=== PATIENT | female | born 1955 | race Caucasian/White ===

== ENCOUNTER → 2018-10-06 | Outpatient (CLI) | payer BC ==
[2018-10-06 10:41] LABS: Anisocytosis Slight; HCT 39.4 % (34.0-46.0); HGB 12.1 gm/dL (11.4-16.0); Hypochromasia Slight; MCH 26.2 pg (25.0-35.0); MCHC 30.8 g/dL (31.0-37.0); MCV 84.8 fL (80.0-100.0); Mean Platelet Volume 7.1; Platelet Count 325 k/uL (150-450); RBC 4.64 m/uL (3.80-5.40); RDW 16.3 % (11.5-15.5); WBC 6.5 k/uL (3.8-10.6)
== END ==
LOC: LABPAT 09:30
PROVIDERS: ATTEND Anesthesiology
DX: Z01.812 Encounter for preprocedural laboratory examination (principal); K44.9 Diaphragmatic hernia without obstruction or gangrene; Z79.899 Other long term (current) drug therapy
CPT/HCPCS: 36415; 84132; 85027

== ENCOUNTER 2018-10-09 15:55 | Inpatient (IN) | payer BC ==
[2018-10-10] MEDS ORDERED: LEVOFLOXACIN 500MG-D5W PMX 500 MG in DEXTROSE/WATER 1 100ML.BAG IVPB ONE (05:00)
[2018-10-10] MEDS ORDERED: CLINDAMYCIN 900 MG in DEXTROSE 5% IN WATER 50 ML IVPB ONE ×2 (05:00)
[2018-10-10] MEDS ORDERED: HEPARIN SODIUM,PORCINE 5,000 UNIT/ML 1 ML VIAL SQ ONE (05:00)
[2018-10-10] MEDS ORDERED: SCOPOLAMINE 1.5MG/72HR PATCH TRANSDERM ONE (05:57)
[2018-10-10] MEDS ORDERED: MIDAZOLAM (PF) 2 MG/2 ML VIAL IV PRN (05:57)
[2018-10-10] MEDS ORDERED: DEXAMETHASONE SOD PHOSPHATE 10 MG/ML 1 ML VIAL IV ONE (05:57)
[2018-10-10] MEDS ORDERED: ONDANSETRON 4 MG/2 ML VIAL IVP ONE (05:57)
[2018-10-10] MEDS ORDERED: LIDOCAINE 1% 20 ML VIAL (10MG/ML) FOR IV START INTRADERMA PRN (05:57)
[2018-10-10] MEDS ORDERED: PANTOPRAZOLE 40 MG/10 ML VIAL IV STA (06:10)
[2018-10-10] MEDS ORDERED: ENOXAPARIN 40 MG/0.4 ML SYRINGE SQ STA (06:10)
[2018-10-10] MEDS ORDERED: CHLORHEXIDINE GLUCONATE 15 ML CUP MUCOUS MEM ONE (06:10)
--- NOTE | 2018-10-10 06:19 | P.GSHP ---
History of Present Illness H&P Date: 10/10/18 CHIEF COMPLAINT: Paraesophageal hiatal hernia with gastroesophageal reflux disease. HISTORY OF PRESENT ILLNESS: The patient is a 63-year-old female who presents with paraesophageal hiatal hernia. She has completed upper endoscopy workup. She has history of previous vertical banded gastroplasty for morbid obesity over 30+ years ago now with complications of gastroparesis. She present with BMI over 50. Now she presents for surgical intervention. PAST MEDICAL HISTORY: Please see list. PAST SURGICAL HISTORY: Please see list. MEDICATIONS: Please see list. ALLERGIES: Please see list. SOCIAL HISTORY: No illicit drug use FAMILY HISTORY: No reports of Crohn disease or ulcerative colitis. REVIEW OF ORGAN SYSTEMS: CONSTITUTIONAL: No reports of fevers or chills. GI: Denies any blood in stools. PHYSICAL EXAM: VITAL SIGNS: Stable GENERAL: Well-developed pleasant and in no acute distress. HEENT: No scleral icterus. Extraocular movements grossly intact. Moist buccal mucosa. NECK: Supple without lymphadenopathy. CHEST: Unlabored respirations. Equal bilateral excursions. CARDIOVASCULAR: Regular rate and rhythm. Distal 2+ pulses. ABDOMEN: Soft, nondistended. No peritoneal signs. MUSCULOSKELETAL: No clubbing, cyanosis, or edema. SKIN: Well-perfused. Good skin turgor. CT of the chest: Shows large paraesophageal hiatal hernia. ASSESSMENT: 1. Diaphragmatic paraesophageal hiatal hernia with severe gastroesophageal reflux disease. PLAN: 1. Recommend proceeding with a robotic paraesophageal hiatal hernia with possible mesh. 2. Benefits and risks of surgical intervention was discussed including possibility of open technique. 3. Inpatient hospitalization recommended of 2 nights 4. DVT prophylaxis. 5. Antibiotic prophylaxis. 6. She has also completed a very low caloric high-protein diet to address underlying hepatomegaly. Past Medical History Past Medical History: COPD, GERD/Reflux, Thyroid Disorder Additional Past Medical History / Comment(s): hiatal hernia,hx hypoglycemia, rapid heart rate History of Any Multi-Drug Resistant Organisms: None Reported Past Surgical History: Appendectomy, Bariatric Surgery, Section, Cholecystectomy, Joint Replacement, Tonsillectomy Additional Past Surgical History / Comment(s): rt shoulder replacement,tali knee replaced x 2,gastric stapling 30 yrs ago-later reversed,rt carpel tunnel x 2 Past Anesthesia/Blood Transfusion Reactions: No Reported Reaction Additional Past Anesthesia/Blood Transfusion Reaction / Comment(s): no hx blood transfusion Smoking Status: Former smoker - Past Family History Mother Family Medical History: No Reported History Father Family Medical History: Cancer Medications and Allergies Home Medications Medication Instructions Recorded Confirmed Type Cholecalciferol [Vitamin D3] 5,000 unit PO DAILY 10/03/18 10/03/18 History Cyclobenzaprine HCl 10 mg PO HS 10/03/18 10/03/18 History DULoxetine HCL [Cymbalta] 30 mg PO BID 10/03/18 10/03/18 History Furosemide [Lasix] 40 mg PO BID 10/03/18 10/03/18 History Gabapentin [Neurontin] 600 mg PO TID 10/03/18 10/03/18 History Grape Seed Extract 50 mg PO DAILY 10/03/18 History Lansoprazole 30 mg PO BID 10/03/18 10/03/18 History Levothyroxine Sodium 100 mcg PO QAM 10/03/18 10/03/18 History Losartan [Cozaar] 50 mg PO QAM 10/03/18 10/03/18 History Magnesium 250 mg PO DAILY 10/03/18 10/03/18 History Metoprolol Tartrate [Lopressor] 25 mg PO BID 10/03/18 10/03/18 History Montelukast Sodium [Singulair] 10 mg PO HS 10/03/18 10/03/18 History Multivitamins, Thera [Multivitamin 1 tab PO DAILY 10/03/18 10/03/18 History (formulary)] Potassium Chloride 10 meq PO DAILY 10/03/18 10/03/18 History Spironolactone [Aldactone] 25 mg PO DAILY 10/03/18 10/03/18 History Turmeric Root Extract [Turmeric] 500 mg PO DAILY 10/03/18 10/03/18 History Allergies Allergy/AdvReac Type Severity Reaction Status Date / Time cephalexin [From Keflex] Allergy rash Verified 10/03/18 13:34 around mouth doxycycline Allergy Itching Verified 10/03/18 13:34
[2018-10-10] MEDS: LACTATED RINGERS 1,000 ML IV SCH (09:34)
[2018-10-10 09:55] LABS: ALT 42 U/L (9-52); AST 38 U/L (14-36); Albumin 4.2 g/dL (3.5-5.0); Alkaline Phosphatase 81 U/L (38-126); Anion Gap 7 mmol/L; Blood Urea Nitrogen 10 mg/dL (7-17); Calcium 9.2 mg/dL (8.4-10.2); Carbon Dioxide 30 mmol/L (22-30); Chloride 107 mmol/L (98-107); Glucose 108 mg/dL (74-99); Potassium 3.9 mmol/L (3.5-5.1); Sodium 144 mmol/L (137-145); Total Bilirubin 0.7 mg/dL (0.2-1.3); Total Protein 6.9 g/dL (6.3-8.2)
[2018-10-10] MEDS ORDERED: PHENYLEPHRINE-0.9% NACL SYG 1 MG/10 ML SYRINGE ONE (10:59)
[2018-10-10] MEDS ORDERED: PROPOFOL 10 MG/ML 20 ML VIAL IV ONE (10:59)
[2018-10-10] MEDS ORDERED: LIDOCAINE 1% INJ 10MG/ML (20 ML MDV) ONE (10:59)
[2018-10-10] MEDS ORDERED: fentaNYL (PF) 50 MCG/ML 2 ML AMP ONE (10:59)
[2018-10-10] MEDS ORDERED: KETOROLAC 30 MG/ML 1 ML VIAL ONE (10:59)
[2018-10-10] MEDS ORDERED: NALOXONE 0.4 MG/ML 1 ML VIAL ONE (10:59)
[2018-10-10] MEDS ORDERED: SUCCINYLCHOLINE CHLORIDE 100 MG/5 ML SYR IV ONE (10:59)
[2018-10-10] MEDS ORDERED: MIDAZOLAM 2 MG/2 ML VIAL ONE (10:59)
[2018-10-10] MEDS ORDERED: NEOSTIGMINE 1 MG/ML 10 ML VIAL ONE (10:59)
[2018-10-10] MEDS ORDERED: GLYCOPYRROLATE 0.2 MG/ML 2 ML VIAL ONE (10:59)
[2018-10-10] MEDS ORDERED: VECURONIUM 10 MG VIAL IV ONE (10:59)
[2018-10-10] MEDS ORDERED: BUPIVACAIN-EPI 0.5%-1:200,000 30 ML VIAL SQ ONE ×2 (11:29→11:42)
[2018-10-10] MEDS ORDERED: LACTATED RINGERS 1,000 ML IV ONE (12:12)
[2018-10-10] MEDS ORDERED: diphenhydrAMINE 50 MG/ML 1 ML VIAL IVP PRN (12:53)
[2018-10-10] MEDS ORDERED: NALOXONE 0.4 MG/ML 1 ML VIAL IV PRN (12:53)
--- NOTE | 2018-10-10 13:00 | P.OP ---
Date of Procedure: 10/10/18 Preoperative Diagnosis: Esophageal reflux disease, gastroparesis, complications of vertical banded gastroplasty, super morbid obesity BMI 52.7, diaphragmatic hiatal hernia Postoperative Diagnosis: Same, severe peritoneal adhesions with small bowel obstruction, incarcerated incisional hernia midline Procedure(s) Performed: Robotic extensive lysis of adhesions over 1 hour Anesthesia: GETA, local Surgeon: Ina Novoa Estimated Blood Loss (ml): 5 Pathology: none sent Condition: stable Disposition: floor Operative Findings: 1. Diffuse intra-abdominal adhesions prohibiting view of epigastrium including stomach requiring extensive lysis of adhesions over 1 hour 2. Multiple interloop adhesions including small bowel adhesion to the abdominal wall with features consistent with bowel obstruction, hiatal hernia repair portion of the case aborted
[2018-10-10] MEDS: HYDROmorphone 0.5 MG/0.5 ML SYRINGE IVP PRN ×2 (13:49→13:55)
[2018-10-10] MEDS ORDERED: ACETAMINOPHEN IV (For NPO) 1,000 MG in EMPTY BAG 1 BAG IVPB ONE (15:00)
[2018-10-10] MEDS: 0.9% NACL WITH KCL 20 MEQ/L 1,000 ML IV SCH ×2 (16:00→21:07)
[2018-10-10 16:07] VITALS: BMI 52.7
[2018-10-10] MEDS: ALBUTEROL NEBULIZED 2.5 MG/3 ML INHALATION SCH ×2 (16:12→20:19)
[2018-10-10] MEDS: SIMETHICONE 40 MG/0.6 ML DROPS 2,000 MG/30 ML BOTTLE PO SCH ×2 (16:35→23:42)
[2018-10-10] MEDS: PANTOPRAZOLE 40 MG TABLET PO SCH (16:35)
[2018-10-10] MEDS: GABAPENTIN 300 MG CAP PO SCH ×2 (16:35→21:04)
[2018-10-10] MEDS: CYCLOBENZAPRINE 10 MG TAB PO SCH (21:04)
[2018-10-10] MEDS: METOPROLOL TARTRATE 25 MG TAB PO SCH (21:04)
[2018-10-10] MEDS: MONTELUKAST 10 MG TAB PO SCH (21:04)
[2018-10-10] MEDS: DULoxetine HCL 30 MG CAPSULE.DR PO SCH (21:07)
--- NOTE | 2018-10-10 22:19 | P.OP ---
Date of Procedure: 10/10/18 Description of Procedure: SURGEON: ELI RUELAS MD PREOPERATIVE DIAGNOSES: 1. Gastroesophageal reflux disease 2. Gastroparesis 3. Complications of vertical banded gastroplasty 4. Super morbid obesity BMI 52.7 5. Diaphragmatic hiatal hernia 6. Congestive heart failure with hypertensive cardiomyopathy 7. Moderate chronic obstructive pulmonary disease 8. Depressive disorder 9. Hypothyroidism 10. Neuropathy 11. Osteoarthritis bilateral knees, primary 12. History of multiple abdominal procedures POSTOPERATIVE DIAGNOSES: 1. Gastroesophageal reflux disease 2. Gastroparesis 3. Complications of vertical banded gastroplasty 4. Super morbid obesity BMI 52.7 5. Diaphragmatic hiatal hernia 6. Congestive heart failure with hypertensive cardiomyopathy 7. Moderate chronic obstructive pulmonary disease 8. Depressive disorder 9. Hypothyroidism 10. Neuropathy 11. Osteoarthritis bilateral knees, primary 12. History of multiple abdominal procedures 13. Severe peritoneal adhesions with small bowel obstruction 14. Incarcerated incisional hernia midline involving omentum OPERATION: 1. Robotic-assisted da Matt Xi laparoscopic extensive lysis of adhesions over 1 hour COMPLICATIONS: None. Anesthesia: GETA, local Estimated Blood Loss (ml): 5 Pathology: none sent Condition: stable Disposition: floor Operative Findings: 1. Diffuse intra-abdominal adhesions prohibiting view of epigastrium including stomach requiring extensive lysis of adhesions over 1 hour 2. Multiple interloop adhesions including small bowel adhesion to the abdominal wall with features consistent with small bowel obstruction 3. Hiatal hernia repair portion of the case aborted INDICATIONS: The patient is a 63-year-old female who presents with gastroesophageal reflux and abnormal diagnostic studies demonstrating hiatal hernia and gastric distortion from vertical banded gastroplasty. Surgical intervention of hiatal hernia repair with mesh was described. Informed consent was obtained. Robotic assisted laparoscopic approach was described. Benefits and risks of the procedure including but not limited to bleeding, infection, injury to the small bowel was described. Informed consent was obtained. DESCRIPTION OF PROCEDURE: Patient was brought to the operating room, placed in supine position. After general induction, the abdomen had been prepped and draped in standard sterile fashion. The robotic da Matt XI system was primed. After a timeout protocol was performed, the patient had been prepped and draped in standard sterile fashion. A 5 mm 0 degrees laparoscopic trocar entry was performed along the left upper quadrant. The abdomen was insufflated to 15 mmHg pressure which she tolerated well. Diagnostic laparoscopy demonstrated severe intra-abdominal adhesions involving the midline at the umbilicus, epigastrium, right upper quadrant and left upper quadrant. The small bowel was completely adhered to the epigastrium and decompressed with small bowel dilation proximally consistent with chronic small bowel obstruction. As a result of this finding, hiatal hernia repair was aborted. The robot was docked along the left lateral abdomen. The patient was repositioned in Trendelenburg position of 6 -degrees. Next, three 8 mm robotic ports were placed along the left lateral abdomen. Please note that the ports were placed at least 8 cm away from each other. Instruments were interchanged using grasper, scissors and vessel sealer. I had sat at the console. Extensive lysis of adhesions over 1 hour was performed using blunt and sharp dissection. Carefully the adhesions were taken down without injury to the small bowel using limited vessel sealer and scissors. The small bowel of the epigastrium corresponded to the jejunum including the transverse mesocolon adhered to the abdominal wall similarly released without injury. Severe adhesions along the left upper quadrant to the stomach was also freed. Port- site incarcerated incisional hernias along the midline and right upper quadrant were confirmed and reduced. Interloop adhesions were addressed with blunt and sharp dissection with scissors. Hemostasis was excellent. The robot was undocked. All pneumoperitoneum and instruments were evacuated from the abdominal cavity. The incisions were reapproximated using 4-0 Monocryl in an interrupted subcuticular fashion. Please note along the trocar sites, local anesthetic was placed as a field block prior to insertion of all instruments. The skin was cleansed. Liquid glue was applied to the skin. At the end of the procedure needle, sponge, and instrument count had been verified correct by the medical or surgical instrument maker. The patient was transferred to postanesthesia care unit in stable condition. Intraoperative images including findings were described to the patients family.
[2018-10-11] MEDS: LEVOTHYROXINE 100 MCG TAB PO SCH (06:11)
[2018-10-11] MEDS: SIMETHICONE 40 MG/0.6 ML DROPS 2,000 MG/30 ML BOTTLE PO SCH ×4 (06:11→23:56)
[2018-10-11] MEDS: LACTATED RINGERS 1,000 ML IV SCH (06:56)
[2018-10-11] MEDS: HYDROmorphone 1 MG/ML 1 ML SYRINGE IVP PRN ×3 (07:03→20:35)
[2018-10-11] MEDS: PANTOPRAZOLE 40 MG TABLET PO SCH ×2 (08:45→16:35)
[2018-10-11] MEDS: ENOXAPARIN 40 MG/0.4 ML SYRINGE SQ SCH (08:45)
[2018-10-11] MEDS: METOPROLOL TARTRATE 25 MG TAB PO SCH ×2 (08:45→20:36)
[2018-10-11] MEDS: GABAPENTIN 300 MG CAP PO SCH ×3 (08:45→20:36)
[2018-10-11] MEDS: DULoxetine HCL 30 MG CAPSULE.DR PO SCH ×2 (08:45→20:35)
--- NOTE | 2018-10-11 08:45 | FL ---
EXAMINATION TYPE: FL UGI DATE OF EXAM: 10/11/2018 LIMITED UGI-ESOPHAGRAM: HISTORY: History of morbid obesity and reflux with Canceled Chas fundoplication surgery yesterday w ith history of prior bariatric surgery remotely. TECHNIQUE: A single contrast UGI study is performed. A total of 78 seconds of fluoroscopic time was utilized during procedure. 52 spot images are saved. FINDINGS: The patient swallowed contrast without difficulty or delay. Esophageal peristalsis and mo tility are felt normal limits. There is good flow of contrast along the diaphragmatic hiatus into the stomach remnant. There is poor peristalsis in the stomach remnant with 3 air-fluid levels. There is delayed flow from stomach remnant into anastomotic small bowel loop along right aspect of remnant wit h eventual flow into slightly prominent small bowel loop in the left upper pelvis from right-sided an astomosis. Incidental surgical clips and sutures along inferior margin of stomach remnant as well as additional sutures over left midabdomen. Cholecystectomy clips are noted. Some reflux of contrast int o the distal esophagus is noted. No hiatal hernia is present. IMPRESSION: Atypical gastric bypass surgery with gastric remnant slightly more prominent than typical that shows poor peristalsis with right-sided anastomosis into proximal small bowel loops. Some reflu x is evident. No hiatal hernia is seen.
[2018-10-11] MEDS: ALBUTEROL NEBULIZED 2.5 MG/3 ML INHALATION SCH ×4 (08:49→19:10)
[2018-10-11] MEDS: LOSARTAN 50 MG TAB PO SCH (09:00)
[2018-10-11 09:58] LABS: Anisocytosis Slight; Basophils % (A) 0 %; Eosinophils # (A) 0.1 k/uL (0-0.7); Eosinophils % (A) 1 %; HGB 10.7 gm/dL (11.4-16.0); Hypochromasia Moderate; Lymphocytes # (A) 2.1 k/uL (1.0-4.8); Lymphocytes % (A) 29 %; MCH 26.3 pg (25.0-35.0); MCHC 30.7 g/dL (31.0-37.0); MCV 85.5 fL (80.0-100.0); Mean Platelet Volume 7.6; Monocytes # (A) 0.4 k/uL (0-1.0); Monocytes % (A) 6 %; Neutrophils # (A) 4.4 k/uL (1.3-7.7); Neutrophils % (A) 60 %; Platelet Count 235 k/uL (150-450); RBC 4.09 m/uL (3.80-5.40); RDW 16.2 % (11.5-15.5); WBC 7.3 k/uL (3.8-10.6)
[2018-10-11 10:19] LABS: Anion Gap 7 mmol/L; Blood Urea Nitrogen 10 mg/dL (7-17); Calcium 8.9 mg/dL (8.4-10.2); Carbon Dioxide 27 mmol/L (22-30); Chloride 108 mmol/L (98-107); Magnesium 1.9 mg/dL (1.6-2.3); Sodium 142 mmol/L (137-145)
[2018-10-11] MEDS: 0.9% NACL WITH KCL 20 MEQ/L 1,000 ML IV SCH (11:27)
[2018-10-11] MEDS ORDERED: TAMSULOSIN 0.4 MG CAP.ER.24H PO STA (12:41)
--- NOTE | 2018-10-11 12:41 | P.PN ---
Subjective Progress Note Date: 10/11/18 CHIEF COMPLAINT: Small bowel obstruction HISTORY OF PRESENT ILLNESS: The patient is a 63-year-old female status post lysis of adhesions following attempted hiatal hernia repair. Intraoperative findings demonstrated severe intra-abdominal adhesions including small bowel obstruction. She has history of gastroparesis including complications from her 30+ year old vertical band gastroplasty. She is POD 1. She had troubles with urinating requiring straight cath overnight. She denies dyspnea. She is tolerating liquids. She has history of COPD. PHYSICAL EXAM: VITAL SIGNS: Reviewed GENERAL: Well-developed in no acute distress. HEENT: No sclera icterus. Extraocular movements grossly intact. Moist buccal mucosa. Head is atraumatic, normocephalic. Hears conversational speech. NECK: Supple without lymphadenopathy. CHEST: Non-labored respirations and equal bilateral excursions. CARDIOVASCULAR: Palpable 2+ radial pulses. Regular rate and regular rhythm ABDOMEN: Soft. Non-distended. Incisions are clean dry and intact. MUSCULOSKELETAL: No clubbing, cyanosis. No edema. NEUROLOGIC: No focal or lateralizing signs. Cranial nerves II through XII grossly intact. PSYCH: Appropriate affect. Alert and oriented to person, place and time. SKIN: Well perfused. Good skin turgor. LABS: Reviewed STUDIES: Reviewed ASSESSMENT: 1. Small bowel obstruction due to adhesions. 2. Super morbid obesity, BMI 52.7 3. 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 Gastroparesis 5. Moderate COPD 6. Urinary retention 7. Gastroesophageal reflux disease 8. History of hiatal hernia. 9. Stomach stenosis PLAN: 1. UGI confirms distortion of stomach. 2. Plan for flomax for urinary retention. 3. Low oxygen saturation secondary to COPD as expected. 4. Continue bariatric liquids. 4. Discharge pending flatus and resolution of urinary retention. Objective - Vital Signs Vital signs: Vital Signs Temp 97.8 F 10/11/18 06:29 Pulse 92 10/11/18 09:03 Resp 16 10/11/18 07:05 BP 96/60 10/11/18 06:29 Pulse Ox 95 10/11/18 06:29 Intake & Output 10/10/18 10/11/18 10/11/18 18:59 06:59 18:59 Intake Total 2156 Output Total 85 200 300 Balance 2070200 -300 Weight 130.7 kg Intake: IV 1756 Oral 400 Output: Urine 80 200 300 Straight 200 Post Void Residual 0 Estimated Blood Loss 5 Other: Voiding Method Toilet Toilet Toilet # Voids 1 - Labs CBC & Chem 7: 10/11/18 09:15 10/11/18 09:15 Labs: Abnormal Lab Results - Last 24 Hours (Table) 10/11/18 10/11/18 Range/Units 09:15 09:15 Hgb 10.7 L (11.4-16.0) gm/dL MCHC 30.7 L (31.0-37.0) g/dL RDW 16.2 H (11.5-15.5) % Chloride 108 H (98-107) mmol/L - Imaging and Cardiology UGI reviewed 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 Resolved small bowel obstruction of proximal small bowel Assessment and Plan (1) Small bowel obstruction due to adhesions Current Visit: Yes Status: Acute Code(s): K56.50 - INTESTNL ADHESIONS, UNSP TO PARTIAL VERSUS COMPLETE OBST SNOMED Code(s): 271259000 (2) Gastroesophageal reflux disease Current Visit: Yes Status: Acute Code(s): K21.9 - GASTRO-ESOPHAGEAL REFLUX DISEASE WITHOUT ESOPHAGITIS SNOMED Code(s): 198400878 (3) Bariatric surgery status Current Visit: Yes Status: Acute Code(s): Z98.84 - BARIATRIC SURGERY STATUS SNOMED Code(s): 242172062 (4) Complications of bariatric procedures Current Visit: Yes Status: Acute Code(s): K95.89 - OTHER COMPLICATIONS OF OTHER BARIATRIC PROCEDURE SNOMED Code(s): 70068459 (5) Morbid obesity due to excess calories Current Visit: Yes Status: Acute Code(s): E66.01 - MORBID (SEVERE) OBESITY DUE TO EXCESS CALORIES SNOMED Code(s): 879577989 (6) Adult BMI 50.0-59.9 kg/sq m Current Visit: Yes Status: Acute Code(s): Z68.43 - BODY MASS INDEX (BMI) 50- 59.9, ADULT SNOMED Code(s): 287500596 (7) Moderate COPD (chronic obstructive pulmonary disease) Current Visit: Yes Status: Acute Code(s): J44.9 - CHRONIC OBSTRUCTIVE PULMONARY DISEASE, UNSPECIFIED SNOMED Code(s): 634170975 (8) Urinary retention Current Visit: Yes Status: Acute Code(s): R33.9 - RETENTION OF URINE, UNSPECIFIED SNOMED Code(s): 160340787 (9) Congestive heart failure Current Visit: Yes Status: Acute Code(s): I50.9 - HEART FAILURE, UNSPECIFIED SNOMED Code(s): 37483386 (10) Gastroparesis Current Visit: Yes Status: Acute Code(s): K31.84 - GASTROPARESIS SNOMED Code(s): 475892767 (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
--- NOTE | 2018-10-11 13:24 | P.CONS ---
History of Present Illness - Reason for Consult Consult date: 10/11/18 Medical management - Chief Complaint Paraesophageal hiatal hernia with gastroesophageal reflux disease - History of Present Illness This is a 63-year-old female with a past medical history of hiatal hernia, hypothyroidism, COPD, hypertension, morbid obesity with a history of previous vertical banded gastroplasty. Patient has a history of severe gastroesophageal reflux disease and has failed multiple treatments. She decided to go for elective surgery with Dr. Tinajero for robotic paraesophageal hiatal hernia with possible mesh yesterday. During the procedure she was found to have diffuse intra-abdominal adhesions that required extensive lysis, she also had intraloop adhesions including small bowel adhesions to the abdominal wall with bowel obstruction, due to this, the hiatal hernia repair was not done. Postoperatively she developed some urinary retention, Flomax was initiated, she has not passed flatus nor had a bowel movement yet. She is tolerating a clear liquid diet. Review of Systems Constitutional: Denies chills, Denies fever Cardiovascular: Denies chest pain, Denies dyspnea on exertion, Denies edema, Denies orthopnea, Denies palpitations, Denies shortness of breath, Denies syncope Respiratory: Denies cough, Denies dyspnea, Denies pain, Denies snoring, Denies wheezing Gastrointestinal: Denies constipation, Denies nausea, Denies vomiting Genitourinary: Denies dysuria, Denies flank pain, Denies stress incontinence, Denies urge incontinence, Denies urgency, Denies urinary frequency Integumentary: Denies lesions, Denies pruritus, Denies rash, Denies wounds Neurological: Denies headaches, Denies paralysis, Denies seizures, Denies syncope, Denies tingling, Denies weakness Past Medical History Past Medical History: COPD, GERD/Reflux, Thyroid Disorder Additional Past Medical History / Comment(s): hiatal hernia,hx hypoglycemia, rapid heart rate History of Any Multi-Drug Resistant Organisms: None Reported Past Surgical History: Appendectomy, Bariatric Surgery, Section, Cholecystectomy, Joint Replacement, Tonsillectomy Additional Past Surgical History / Comment(s): rt shoulder replacement,tali knee replaced x 2,gastric stapling 30 yrs ago-later reversed,rt carpel tunnel x 2 Past Anesthesia/Blood Transfusion Reactions: No Reported Reaction Additional Past Anesthesia/Blood Transfusion Reaction / Comm: no hx blood transfusion Past Psychological History: No Psychological Hx Reported Smoking Status: Former smoker Past Alcohol Use History: None Reported Additional Past Alcohol Use History / Comment(s): quit smoking 1991,smoked approx 15 yrs-1 1/2 ppd Past Drug Use History: None Reported - Past Family History Mother Family Medical History: No Reported History Father Family Medical History: Cancer Medications and Allergies Home Medications Medication Instructions Recorded Confirmed Type Cholecalciferol [Vitamin D3] 5,000 unit PO DAILY 10/03/18 10/10/18 History Cyclobenzaprine HCl 10 mg PO HS 10/03/18 10/10/18 History DULoxetine HCL [Cymbalta] 30 mg PO BID 10/03/18 10/10/18 History Furosemide [Lasix] 40 mg PO BID 10/03/18 10/10/18 History Gabapentin [Neurontin] 600 mg PO TID 10/03/18 10/10/18 History Grape Seed Extract 50 mg PO DAILY 10/03/18 10/10/18 History Lansoprazole 30 mg PO BID 10/03/18 10/10/18 History Levothyroxine Sodium 100 mcg PO QAM 10/03/18 10/10/18 History Losartan [Cozaar] 50 mg PO QAM 10/03/18 10/10/18 History Magnesium 250 mg PO DAILY 10/03/18 10/10/18 History Metoprolol Tartrate [Lopressor] 25 mg PO BID 10/03/18 10/10/18 History Montelukast Sodium [Singulair] 10 mg PO HS 10/03/18 10/10/18 History Multivitamins, Thera [Multivitamin 1 tab PO DAILY 10/03/18 10/10/18 History (formulary)] Potassium Chloride 10 meq PO DAILY 10/03/18 10/10/18 History Spironolactone [Aldactone] 25 mg PO DAILY 10/03/18 10/10/18 History HYDROcodone/APAP 5-325MG [[place] 1 tab PO Q4HR PRN 3 Days #18 tab 10/12/18 Rx 5-325] Allergies Allergy/AdvReac Type Severity Reaction Status Date / Time cephalexin [From Keflex] Allergy rash Verified 10/10/18 13:53 around mouth doxycycline Allergy Itching Verified 10/10/18 13:53 Physical Exam Vitals: Vital Signs Temp Pulse Pulse Pulse Resp BP Pulse Ox 10/11/18 12:56 85 02/02/19 12:45 79 10/11/18 09:03 92 10/11/18 08:50 88 10/11/18 07:05 16 10/11/18 06:29 97.8 F 85 16 96/60 95 10/11/18 03:12 16 10/11/18 00:16 97.7 F 89 16 95/60 92 L 10/10/18 23:27 16 10/10/18 20:00 16 10/10/18 19:30 97.9 F 97 16 110/71 95 10/10/18 18:43 91 L 10/10/18 17:00 88 101/78 10/10/18 16:51 16 10/10/18 16:45 89 100/69 10/10/18 16:30 88 88 112/76 10/10/18 16:15 88 103/73 10/10/18 16:12 84 10/10/18 16:00 87 107/76 10/10/18 15:45 89 100/69 10/10/18 15:30 89 98/66 10/10/18 15:15 89 88/53 10/10/18 15:00 97.5 F L 91 12 105/56 91 L 10/10/18 14:20 95 16 98/62 99 10/10/18 14:05 84 16 106/55 100 10/10/18 14:00 88 16 99/55 98 10/10/18 13:45 70 16 101/55 98 10/10/18 13:30 86 16 100/67 100 10/10/18 13:15 90 16 122/56 100 Intake and Output 10/10/18 10/11/18 10/11/18 22:59 06:59 14:59 Intake Total 400 Output Total 200 300 Balance 400 -200 -300 Intake: Oral 400 Output: Urine 200 300 Straight 200 Post Void Residual 0 Other: Voiding Method Toilet Toilet Toilet # Voids 1 Weight 130.7 kg - Constitutional General appearance: morbidly obese, no acute distress - EENT Eyes: EOMI, PERRLA - Neck Neck: no lymphadenopathy, normal ROM, no stridor, no thyromegaly - Respiratory Respiratory: bilateral: CTA, negative: diminished, dullness, rales, rhonchi, wheezing - Cardiovascular Rhythm: regular Heart sounds: normal: S1 - Gastrointestinal General gastrointestinal: no distended, no hepatomegaly, no organomegaly, soft, no tenderness - Neurologic Neurologic: CNII-XII intact - Musculoskeletal Musculoskeletal: gait normal, no generalized weakness, strength equal bilaterally, no right sided weakness, no left sided weakness - Psychiatric Psychiatric: A&O x's 3, appropriate affect Results CBC & Chem 7: 10/11/18 09:15 10/11/18 09:15 Labs: Abnormal Lab Results - Last 24 Hours (Table) 10/11/18 10/11/18 Range/Units 09:15 09:15 Hgb 10.7 L (11.4-16.0) gm/dL MCHC 30.7 L (31.0-37.0) g/dL RDW 16.2 H (11.5-15.5) % Chloride 108 H (98-107) mmol/L Assessment and Plan Assessment: 1. Postop day 2 for small bowel obstruction secondary to adhesions with lysis of adhesions patient doing well, tolerating diet, no nausea vomiting 2. Hiatal hernia and GERD hiatal hernia unable to be repaired due to the multiple adhesions, continue Protonix 40 mg twice a day 3. Urinary retention. Continue Flomax and bladder scanning 4. Hypertension. Continue with metoprolol 25 mg twice a day also losartan 50 mg daily 5. COPD: Continue albuterol as needed 6. Hypothyroidism continue levothyroxine at 100 g per day DVT prophylaxis continue with Lovenox GI prophylaxis continue with Protonix The above impression and plan of care have been discussed and directed by signing physician. Lulu Beasley nurse practitioner acting as scribe for signing physician.
[2018-10-11] MEDS ORDERED: FUROSEMIDE 10 MG/ML 2 ML VIAL IV ONE (16:59)
[2018-10-11] MEDS: FUROSEMIDE 40 MG TAB PO SCH (20:35)
[2018-10-11] MEDS: MONTELUKAST 10 MG TAB PO SCH (20:35)
[2018-10-11] MEDS: CYCLOBENZAPRINE 10 MG TAB PO SCH (20:36)
[2018-10-12] MEDS: ALBUTEROL NEBULIZED 2.5 MG/3 ML INHALATION SCH ×2 (07:08→11:05)
[2018-10-12] MEDS: PANTOPRAZOLE 40 MG TABLET PO SCH (07:12)
[2018-10-12] MEDS: HYDROmorphone 1 MG/ML 1 ML SYRINGE IVP PRN (07:12)
[2018-10-12 07:21] VITALS: BP 114/58; RESP 18; TEMP 98.1
[2018-10-12] MEDS ORDERED: BISACODYL 5 MG TABLET.DR PO PRN (08:00)
[2018-10-12] MEDS ORDERED: SPIRONOLACTONE 25 MG TAB PO SCH (09:00)
[2018-10-12] MEDS ORDERED: POTASSIUM CHLORIDE ER 10 MEQ TAB.ER.PRT PO SCH (09:00)
[2018-10-12] MEDS ORDERED: MAGNESIUM OXIDE 400 MG TAB PO SCH (09:00)
[2018-10-12] MEDS: SIMETHICONE 40 MG/0.6 ML DROPS 2,000 MG/30 ML BOTTLE PO SCH (09:15)
[2018-10-12] MEDS: LACTATED RINGERS 1,000 ML IV SCH (09:16)
[2018-10-12] MEDS: METOPROLOL TARTRATE 25 MG TAB PO SCH (09:16)
[2018-10-12] MEDS: DULoxetine HCL 30 MG CAPSULE.DR PO SCH (09:16)
[2018-10-12] MEDS: LOSARTAN 50 MG TAB PO SCH (09:17)
[2018-10-12] MEDS: GABAPENTIN 300 MG CAP PO SCH (09:17)
[2018-10-12] MEDS: LEVOTHYROXINE 100 MCG TAB PO SCH (09:17)
[2018-10-12] MEDS: FUROSEMIDE 40 MG TAB PO SCH (09:17)
[2018-10-12] MEDS: ENOXAPARIN 40 MG/0.4 ML SYRINGE SQ SCH (09:17)
[2018-10-12 11:15] VITALS: PULSE 88
--- NOTE | 2018-10-12 12:18 | P.PN ---
Subjective Progress Note Date: 10/12/18 CHIEF COMPLAINT: Small bowel obstruction HISTORY OF PRESENT ILLNESS: The patient is a 63-year-old female status post lysis of adhesions following attempted hiatal hernia repair, POD 2. Intraoperative findings demonstrated severe intra-abdominal adhesions including small bowel obstruction. She is passing flatus and voiding spontaneously. She is tolerating bariatric diet. PHYSICAL EXAM: VITAL SIGNS: Reviewed GENERAL: Well-developed in no acute distress. HEENT: No sclera icterus. Extraocular movements grossly intact. Moist buccal mucosa. Head is atraumatic, normocephalic. Hears conversational speech. NECK: Supple without lymphadenopathy. CHEST: Non-labored respirations and equal bilateral excursions. CARDIOVASCULAR: Palpable 2+ radial pulses. Regular rate and regular rhythm ABDOMEN: Soft. Non-distended. Incisions are clean dry and intact. MUSCULOSKELETAL: No clubbing, cyanosis. No edema. NEUROLOGIC: No focal or lateralizing signs. Cranial nerves II through XII grossly intact. PSYCH: Appropriate affect. Alert and oriented to person, place and time. SKIN: Well perfused. Good skin turgor. LABS: Reviewed ASSESSMENT: 1. Small bowel obstruction due to adhesions. 2. Super morbid obesity, BMI 52.7 3. 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 Gastroparesis 5. Moderate COPD 6. Urinary retention 7. Gastroesophageal reflux disease 8. History of hiatal hernia. 9. Stomach stenosis PLAN: 1. Discharge home today 2. Follow up at the bariatric center in 2 weeks. Objective - Vital Signs Vital signs: Vital Signs Temp 98.1 F 10/12/18 07:19 Pulse 88 10/12/18 11:14 Resp 18 10/12/18 07:19 BP 114/58 10/12/18 07:19 Pulse Ox 93 L 10/12/18 07:19 Intake & Output 10/11/18 10/12/18 10/12/18 18:59 06:59 18:59 Intake Total 1911.2 Output Total 1003 450 Balance -1003 1461.2 Intake: Intake, IV Titration 1911.2 Amount 0.9% NaCl with KCl 20 Meq 900 /l 1,000 ml @ 150 mls/hr IV .Q6H40M [facility] Rx#: [id number] Mvi, Adult No.4 with Vit 1011.2 K 10 ml Thiamine 100 mg Folic Acid 1 mg In 0.9% NaCl with KCl 20 Meq/l 1, 000 ml @ 100 mls/hr IV . BY DURATION MARY Rx#: [id number] Output: Urine 950 450 Post Void Residual 53 Other: Voiding Method Toilet Toilet # Voids 1 - Labs CBC & Chem 7: 10/11/18 09:15 10/11/18 09:15 Assessment and Plan (1) Small bowel obstruction due to adhesions Current Visit: Yes Status: Acute Code(s): K56.50 - INTESTNL ADHESIONS, UNSP TO PARTIAL VERSUS COMPLETE OBST SNOMED Code(s): 633617533 (2) Gastroesophageal reflux disease Current Visit: Yes Status: Acute Code(s): K21.9 - GASTRO-ESOPHAGEAL REFLUX DISEASE WITHOUT ESOPHAGITIS SNOMED Code(s): 533534849 (3) Bariatric surgery status Current Visit: Yes Status: Acute Code(s): Z98.84 - BARIATRIC SURGERY STATUS SNOMED Code(s): 426640365 (4) Complications of bariatric procedures Current Visit: Yes Status: Acute Code(s): K95.89 - OTHER COMPLICATIONS OF OTHER BARIATRIC PROCEDURE SNOMED Code(s): 01137317 (5) Morbid obesity due to excess calories Current Visit: Yes Status: Acute Code(s): E66.01 - MORBID (SEVERE) OBESITY DUE TO EXCESS CALORIES SNOMED Code(s): 139379136 (6) Adult BMI 50.0-59.9 kg/sq m Current Visit: Yes Status: Acute Code(s): Z68.43 - BODY MASS INDEX (BMI) 50- 59.9, ADULT SNOMED Code(s): 996353035 (7) Moderate COPD (chronic obstructive pulmonary disease) Current Visit: Yes Status: Acute Code(s): J44.9 - CHRONIC OBSTRUCTIVE PULMONARY DISEASE, UNSPECIFIED SNOMED Code(s): 057338369 (8) Urinary retention Current Visit: Yes Status: Acute Code(s): R33.9 - RETENTION OF URINE, UNSPECIFIED SNOMED Code(s): 056716494 (9) Congestive heart failure Current Visit: Yes Status: Acute Code(s): I50.9 - HEART FAILURE, UNSPECIFIED SNOMED Code(s): 52932273 (10) Gastroparesis Current Visit: Yes Status: Acute Code(s): K31.84 - GASTROPARESIS SNOMED Code(s): 239654460 (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
--- NOTE | 2018-10-12 12:23 | P.DS ---
Providers Date of admission: 10/10/18 08:50 Expected date of discharge: 10/12/18 Attending physician: Ina Novoa Consults: 10/10/18 12:57 Consult Physician Routine Consulting Provider: Hayder Steward Reason/Comments: Medical management Do you want consulting provider notified?: Yes Primary care physician: Jeff Crowley Kut - Discharge Diagnosis(es) (1) Small bowel obstruction due to adhesions Status: Acute (2) Gastroesophageal reflux disease Status: Acute (3) Bariatric surgery status Status: Acute (4) Complications of bariatric procedures Status: Acute (5) Morbid obesity due to excess calories Status: Acute (6) Adult BMI 50.0-59.9 kg/sq m Status: Acute (7) Moderate COPD (chronic obstructive pulmonary disease) Status: Acute (8) Urinary retention Status: Acute (9) Congestive heart failure Status: Acute (10) Gastroparesis Status: Acute (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 Gastroesophageal reflux disease 2. Gastroparesis 3. Complications of vertical banded gastroplasty 4. Super morbid obesity BMI 52.7 5. Diaphragmatic hiatal hernia 6. Congestive heart failure with hypertensive cardiomyopathy 7. Moderate chronic obstructive pulmonary disease 8. Depressive disorder 9. Hypothyroidism 10. Neuropathy 11. Osteoarthritis bilateral knees, primary 12. History of multiple abdominal procedures 13. Severe peritoneal adhesions with small bowel obstruction 14. Incarcerated incisional hernia midline involving omentum 15. Urinary retention COURSE: The patient is a 63-year-old female who presents with gastroesophageal reflux and abnormal diagnostic studies demonstrating hiatal hernia and gastric distortion from vertical banded gastroplasty. Surgical intervention of hiatal hernia repair with mesh was described. Intraoperative findings of severe adhesions prohibited her hiatal hernia repair that was abandoned. Small bowel obstruction from adhesions were released. Post- op additional imaging confirmed no proximal bowel obstruction. She was placed on flomax for urinary retention. She was passing flatus and tolerating diet prior to discharge. Follow up in the bariatric center was arranged. Pertinent Studies: Esophogram confirmed no proximal small bowel blockage following surgery. 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 Robotic-assisted da Matt Xi laparoscopic extensive lysis of adhesions over 1 hour COMPLICATIONS: None. Anesthesia: GETA, local Estimated Blood Loss (ml): 5 Pathology: none sent Condition: stable Disposition: floor Operative Findings: 1. Diffuse intra-abdominal adhesions prohibiting view of epigastrium including stomach requiring extensive lysis of adhesions over 1 hour 2. Multiple interloop adhesions including small bowel adhesion to the abdominal wall with features consistent with small bowel obstruction 3. Hiatal hernia repair portion of the case aborted Patient Condition at Discharge: Stable Plan - Discharge Summary Discharge Rx Participant: No New Discharge Prescriptions: New HYDROcodone/APAP 5-325MG [[place] 5-325] 1 tab PO Q4HR PRN 3 Days #18 tab PRN Reason: Pain Continue Multivitamins, Thera [Multivitamin (formulary)] 1 tab PO DAILY Cholecalciferol [Vitamin D3] 5,000 unit PO DAILY Spironolactone [Aldactone] 25 mg PO DAILY Potassium Chloride 10 meq PO DAILY Montelukast Sodium [Singulair] 10 mg PO HS Metoprolol Tartrate [Lopressor] 25 mg PO BID Lansoprazole 30 mg PO BID Losartan [Cozaar] 50 mg PO QAM Levothyroxine Sodium 100 mcg PO QAM Gabapentin [Neurontin] 600 mg PO TID Furosemide [Lasix] 40 mg PO BID DULoxetine HCL [Cymbalta] 30 mg PO BID Cyclobenzaprine HCl 10 mg PO HS Magnesium 250 mg PO DAILY Grape Seed Extract 50 mg PO DAILY Discontinued Turmeric Root Extract [Turmeric] 500 mg PO DAILY Discharge Medication List Cholecalciferol [Vitamin D3] 5,000 unit PO DAILY 10/03/18 [History] Cyclobenzaprine HCl 10 mg PO HS 10/03/18 [History] DULoxetine HCL [Cymbalta] 30 mg PO BID 10/03/18 [History] Furosemide [Lasix] 40 mg PO BID 10/03/18 [History] Gabapentin [Neurontin] 600 mg PO TID 10/03/18 [History] Grape Seed Extract 50 mg PO DAILY 10/03/18 [History] Lansoprazole 30 mg PO BID 10/03/18 [History] Levothyroxine Sodium 100 mcg PO QAM 10/03/18 [History] Losartan [Cozaar] 50 mg PO QAM 10/03/18 [History] Magnesium 250 mg PO DAILY 10/03/18 [History] Metoprolol Tartrate [Lopressor] 25 mg PO BID 10/03/18 [History] Montelukast Sodium [Singulair] 10 mg PO HS 10/03/18 [History] Multivitamins, Thera [Multivitamin (formulary)] 1 tab PO DAILY 10/03/18 [History ] Potassium Chloride 10 meq PO DAILY 10/03/18 [History] Spironolactone [Aldactone] 25 mg PO DAILY 10/03/18 [History] HYDROcodone/APAP 5-325MG [[place] 5-325] 1 tab PO Q4HR PRN 3 Days #18 tab [Rx] Follow up Appointment(s)/Referral(s): Bariatric Center,. [NON-STAFF] - 10/22/18 (Please call for follow up) Patient Instructions/Handouts: Lysis of Abdominal Adhesions (DC) Activity/Diet/Wound Care/Special Instructions: May shower. No bathtub soaks for 1 week. Diet as tolerated Discharge Disposition: HOME SELF-CARE
--- NOTE | 2018-10-12 12:41 | P.PN ---
Subjective This is a 63-year-old female with a past medical history of hiatal hernia, hypothyroidism, COPD, hypertension, morbid obesity with a history of previous vertical banded gastroplasty. Patient has a history of severe gastroesophageal reflux disease and has failed multiple treatments. She decided to go for elective surgery with Dr. Tinajero for robotic paraesophageal hiatal hernia with possible mesh yesterday. During the procedure she was found to have diffuse intra-abdominal adhesions that required extensive lysis, she also had intraloop adhesions including small bowel adhesions to the abdominal wall with bowel obstruction, due to this, the hiatal hernia repair was not done. Postoperatively she developed some urinary retention, Flomax was initiated, she has not passed flatus nor had a bowel movement yet. She is tolerating a clear liquid diet. /3: Patient resting comfortably in bed. She is tolerating her diet, passing flatus. She denies any chest pain, shortness breath, nausea, vomiting, or palpitations. Patient was giving a dose of Flomax along with Lasix yesterday, patient is now voiding without difficulty. Plans are for discharge home today Objective - Vital Signs Vital signs: Vital Signs Temp 98.1 F 10/12/18 07:19 Pulse 88 10/12/18 11:14 Resp 18 10/12/18 07:19 BP 114/58 10/12/18 07:19 Pulse Ox 93 L 10/12/18 07:19 Intake & Output 10/11/18 10/12/18 10/12/18 18:59 06:59 18:59 Intake Total 1911.2 Output Total 1003 450 Balance -1003 1461.2 Intake: Intake, IV Titration 1911.2 Amount 0.9% NaCl with KCl 20 Meq 900 /l 1,000 ml @ 150 mls/hr IV .Q6H40M [facility] Rx#: [id number] Mvi, Adult No.4 with Vit 1011.2 K 10 ml Thiamine 100 mg Folic Acid 1 mg In 0.9% NaCl with KCl 20 Meq/l 1, 000 ml @ 100 mls/hr IV . BY DURATION MARY Rx#: [id number] Output: Urine 950 450 Post Void Residual 53 Other: Voiding Method Toilet Toilet # Voids 1 - Exam - Constitutional General appearance: morbidly obese, no acute distress - EENT Eyes: EOMI, PERRLA - Neck Neck: no lymphadenopathy, normal ROM, no stridor, no thyromegaly - Respiratory Respiratory: bilateral: CTA, negative: diminished, dullness, rales, rhonchi, wheezing - Cardiovascular Rhythm: regular Heart sounds: normal: S1 - Gastrointestinal General gastrointestinal: no distended, no hepatomegaly, no organomegaly, soft, no tenderness - Neurologic Neurologic: CNII-XII intact - Musculoskeletal Musculoskeletal: gait normal, no generalized weakness, strength equal bilaterally, no right sided weakness, no left sided weakness - Psychiatric Psychiatric: A&O x's 3, appropriate affect - Labs CBC & Chem 7: 10/11/18 09:15 10/11/18 09:15 Assessment and Plan Assessment: 1. Postop day 2 for small bowel obstruction secondary to adhesions with lysis of adhesions patient doing well, tolerating diet, no nausea vomiting 2. Hiatal hernia and GERD hiatal hernia unable to be repaired due to the multiple adhesions, continue Protonix 40 mg twice a day 3. Urinary retention. Resolved patient is now urinating on her own 4. Hypertension. Continue with metoprolol 25 mg twice a day also losartan 50 mg daily 5. COPD: Continue albuterol as needed 6. Hypothyroidism continue levothyroxine at 100 g per day DVT prophylaxis continue with Lovenox GI prophylaxis continue with Protonix The above impression and plan of care have been discussed and directed by signing physician. Lulu Beasley nurse practitioner acting as scribe for signing physician.
--- NOTE | 2018-10-14 13:30 | CDI ---
Documentation Clarification Form Date: 10/14/2018 1:20:48 PM From: Nina Cabreradd Mary Beth Whelan, Ethanol Operator Hours-8:30 am & 5 pm M-F Admit Date: 10/10/2018 8:50:00 AM Patient Name: Ina Larkin Visit Number: [id number] Discharge Date: 10/12/2018 1:31:00 PM ATTENTION: The Clinical Documentation Specialists (CDI) and [facility] Coding Staff appreciate your assistance in clarifying documentation. Please respond to the clarification below the line at the bottom and electronically sign. The CDI & [facility] Coding staff will review the response and follow-up if needed. Please note: Queries are made part of the Legal Health Record. If you have any questions, please contact the author of this message via ITS. Dr. Ina Novoa CHF is documented in the PNs, DS History/Risk Factors: HTN, Obese Treatment: IV/PO Lasix In your professional opinion, can you please clarify the acuity and type of CHF if known? Systolic Heart Failure: Acute Chronic Acute on Chronic Diastolic Heart Failure: Acute Chronic Acute on Chronic Systolic & Diastolic Heart Failure: Acute Chronic Acute on Chronic Heart Failure Unable to Determine Other, please specify Diastolic Heart Failure: Acute Chronic Acute on Chronic Above corrected in discharge summary km 10/14/18 @ 1920 MTDD
== END 2018-10-12 13:31 | disposition home or self-care (01) | DRG 335 ==
LOC: 2ORMAIN 10-10 08:50 → 6PED 10-10 13:52 → 4SSUR 10-10 14:44
PROVIDERS: ADMIT Surgery Plastic and Reconstructive Surgery; ATTEND Surgery Plastic and Reconstructive Surgery
PROC: 8E0W4CZ Robotic Assisted Procedure of Trunk Region, Percutaneous Endoscopic Approach (ICD-10-PCS; 2018-10-10)
PROC: 0DNW4ZZ Release Peritoneum, Percutaneous Endoscopic Approach (ICD-10-PCS; principal; 2018-10-10 10:10)
DX: K44.9 Diaphragmatic hernia without obstruction or gangrene (principal); I50.33 Acute on chronic diastolic (congestive) heart failure; Z68.43 Body mass index [BMI] 50.0-59.9, adult; K56.50 Intestinal adhesions [bands], unspecified as to partial versus complete obstruction; K43.0 Incisional hernia with obstruction, without gangrene; I43 Cardiomyopathy in diseases classified elsewhere; K95.09 Other complications of gastric band procedure; I11.0 Hypertensive heart disease with heart failure; E66.01 Morbid (severe) obesity due to excess calories; K31.84 Gastroparesis; R16.0 Hepatomegaly, not elsewhere classified; G62.9 Polyneuropathy, unspecified; K21.9 Gastro-esophageal reflux disease without esophagitis; J44.9 Chronic obstructive pulmonary disease, unspecified; E03.9 Hypothyroidism, unspecified; M17.0 Bilateral primary osteoarthritis of knee; R33.9 Retention of urine, unspecified; K31.2 Hourglass stricture and stenosis of stomach; F32.9 Major depressive disorder, single episode, unspecified; Z71.3 Dietary counseling and surveillance; Z79.890 Hormone replacement therapy; Z79.899 Other long term (current) drug therapy; Z90.49 Acquired absence of other specified parts of digestive tract; Z87.891 Personal history of nicotine dependence; Z96.611 Presence of right artificial shoulder joint; Z98.84 Bariatric surgery status; Z88.1 Allergy status to other antibiotic agents; Z80.9 Family history of malignant neoplasm, unspecified; Z53.09 Procedure and treatment not carried out because of other contraindication
CPT/HCPCS: 74240; 80051; 80053; 82310; 82565; 83735; 84100; 84520; 85025; 94640; 94760; 94762

== ENCOUNTER → 2018-10-22 | Outpatient (CLI) | payer BC ==
[2018-10-22 17:04] VITALS: BP 158/70; PULSE 73; TEMP 98.4; BMI 52.7
--- NOTE | 2018-10-22 17:21 | P.HPBAR ---
Bariatric H&P - History & Physicial H&P Date: 10/22/18 History & Physicial: Visit/CC: initial clinic visit Patient initial contact: Initial weight: Initial weight in pounds: Height: 5 ft 2 in Initial BMI: Last weight: Current weight: 130.635 kg Current weight in pounds: 288.00 Current BMI: 52.7 [place] body weight (based on NIH guidelines): 49.895 kg Excess body weight loss: The patient is a 63 year-old F who presents for Bariatric Assessment. HPI: She has VBG with complications. Plan for revision to gastric bypass. Will need transfer of medical records from bariatric center. ABDOMEN: Incisions look great PLAN: 1. Plan for revision with high risk surgery. Past Medical History Past Medical History: COPD, GERD/Reflux, Thyroid Disorder Additional Past Medical History / Comment(s): hiatal hernia,hx hypoglycemia, rapid heart rate History of Any Multi-Drug Resistant Organisms: None Reported Past Surgical History: Appendectomy, Bariatric Surgery, Section, Cholecystectomy, Joint Replacement, Tonsillectomy Additional Past Surgical History / Comment(s): rt shoulder replacement,tali knee replaced x 2,gastric stapling 30 yrs ago-later reversed,rt carpel tunnel x 2 Past Anesthesia/Blood Transfusion Reactions: No Reported Reaction Additional Past Anesthesia/Blood Transfusion Reaction / Comm: no hx blood transfusion Past Psychological History: No Psychological Hx Reported Smoking Status: Former smoker Past Alcohol Use History: None Reported Additional Past Alcohol Use History / Comment(s): quit smoking 1991,smoked approx 15 yrs-1 1/2 ppd Past Drug Use History: None Reported - Past Family History Mother Family Medical History: No Reported History Father Family Medical History: Cancer Surgical - Exam Vital Signs Temp Pulse BP 98.4 F 73 158/70 10/22/18 16:58 10/22/18 16:58 10/22/18 16:58 Bariatric Checklist Checklist: Plan: Checklist: EGD: 1. Hiatal hernia: 2. H. Pylori: HgbA1c: Vitamin D: Smoking: Former smoker Primary care physician referral: Psychiatry clearance: Cardiology clearance: Sleep study: Diet journal: VTE risk score: VTE risk level: Rehab needs at discharge:
== END ==
LOC: BARWHC3 15:28
PROVIDERS: ATTEND Surgery Plastic and Reconstructive Surgery
DX: Z48.815 Encounter for surgical aftercare following surgery on the digestive system (principal); Z98.84 Bariatric surgery status; Z87.891 Personal history of nicotine dependence
CPT/HCPCS: 99211

== ENCOUNTER → 2018-11-10 | Outpatient (CLI) | payer BC ==
[2018-11-10 12:54] VITALS: BMI 52.7
== END | disposition home or self-care (01) ==
LOC: BARWHC3 08:34
PROVIDERS: ATTEND Surgery Plastic and Reconstructive Surgery
DX: E66.01 Morbid (severe) obesity due to excess calories (principal); Z68.43 Body mass index [BMI] 50.0-59.9, adult
CPT/HCPCS: 97804

== ENCOUNTER → 2018-12-18 | Outpatient (CLI) | payer BC ==
--- NOTE | 2018-12-18 07:58 | P.PN ---
Subjective Progress Note Date: 12/18/18 HPI: She had her first weight loss surgery over 30 years ago in 1986 for gastric bypass and had a revision with "undo of her surgery." Most weight loss after 1 year 294 pounds to 171 pounds. ABDOMEN: No active hernias ASSESSMENT: 1. Morbid obesity PLAN: 1. Liquid diet only starting Saturday prior to Saturday operation for known history gastroparesis 2. Moderate to high risk of leaks reviewed including postoperative recovery 3. In ICU recovery described.
[2018-12-18 09:22] VITALS: BP 131/79; PULSE 93; TEMP 97.5; BMI 53.7
== END ==
LOC: BARWHC3 07:21
PROVIDERS: ATTEND Surgery Plastic and Reconstructive Surgery
DX: E66.01 Morbid (severe) obesity due to excess calories (principal); Z98.84 Bariatric surgery status; Z68.43 Body mass index [BMI] 50.0-59.9, adult
CPT/HCPCS: 99211

== ENCOUNTER → 2018-12-27 | Outpatient (CLI) | payer BC ==
[2018-12-27 10:44] LABS: Anisocytosis Slight; Basophils % (A) 1 %; Eosinophils # (A) 0.2 k/uL (0-0.7); Eosinophils % (A) 4 %; HCT 41.5 % (34.0-46.0); HGB 13.3 gm/dL (11.4-16.0); Lymphocytes # (A) 1.8 k/uL (1.0-4.8); Lymphocytes % (A) 31 %; MCH 27.2 pg (25.0-35.0); MCHC 32.1 g/dL (31.0-37.0); MCV 84.9 fL (80.0-100.0); Mean Platelet Volume 7.9; Monocytes # (A) 0.3 k/uL (0-1.0); Monocytes % (A) 6 %; Neutrophils # (A) 3.2 k/uL (1.3-7.7); Neutrophils % (A) 55 %; Platelet Count 265 k/uL (150-450); RBC 4.88 m/uL (3.80-5.40); RDW 17.6 % (11.5-15.5); WBC 5.8 k/uL (3.8-10.6)
== END | disposition home or self-care (01) ==
LOC: LABPAT 10:04
PROVIDERS: ATTEND Surgery Plastic and Reconstructive Surgery
DX: Z01.812 Encounter for preprocedural laboratory examination (principal)
CPT/HCPCS: 36415; 85025

== ENCOUNTER 2019-01-05 05:48 | Inpatient (IN) | payer BC ==
[~2019-01-05 05:48] MED LIST: CLINDAMYCIN 900 MG in DEXTROSE 5% IN WATER 50 ML IVPB ONE; GENTAMICIN 400 MG in SODIUM CHLORIDE 0.9% 100 ML IVPB ONE
[2019-01-05] MEDS ORDERED: ONDANSETRON 4 MG/2 ML VIAL IVP ONE (06:00)
[2019-01-05] MEDS ORDERED: SCOPOLAMINE 1.5MG/72HR PATCH TRANSDERM ONE (06:00)
[2019-01-05] MEDS ORDERED: DEXAMETHASONE SOD PHOSPHATE 10 MG/ML 1 ML VIAL IV ONE (06:00)
[2019-01-05] MEDS ORDERED: LIDOCAINE 1% 20 ML VIAL (10MG/ML) FOR IV START INTRADERMA PRN (06:00)
[2019-01-05] MEDS ORDERED: LACTATED RINGERS 1,000 ML IV ONE ×2 (06:13→08:59)
[2019-01-05] MEDS ORDERED: ENOXAPARIN 40 MG/0.4 ML SYRINGE SQ STA (06:24)
[2019-01-05] MEDS ORDERED: PANTOPRAZOLE 40 MG/10 ML VIAL IV STA (06:24)
[2019-01-05] MEDS ORDERED: CHLORHEXIDINE GLUCONATE 15 ML CUP MUCOUS MEM ONE (06:24)
[2019-01-05] MEDS ORDERED: ceFAZolin 3 GM in SODIUM CHLORIDE 0.9% 100 ML IVPB STA (06:25)
--- NOTE | 2019-01-05 06:31 | P.GSHP ---
History of Present Illness H&P Date: 01/05/19 DATE OF SERVICE: 01/05/2019 CHIEF COMPLAINTS: Complications of vertical banded gastroplasty HISTORY OF PRESENT ILLNESS: Ina Larkin is a 63-year-old female who comes in with lifelong morbid obesity. She has vertical banded gastroplasty with complications of epigastric abdominal pain. She is over 30+ years from her procedure. She has severe gastroesophageal reflux disease uncontrolled with medications. She has severe regurgitation. She has family history of troubles with weight with her entire family. No stomach or esophageal cancer. She has heartburn and takes Protonix without relief. She has had past EGDs. She reports constipation. She has no food allergies. Her gallblader has been removed. She is looking into revision into a gastric bypass. She has sleep apnea. She has diabetes in the family. She has back pain, knee pain, and foot pain. She has chronic swelling of the legs. At height of 5 feet 2 inches, her ideal body weight is 135 pounds. She comes in 288 pounds. Her body mass index is 52.9. She is 152 pounds overweight. PAST MEDICAL HISTORY: 1. Morbid obesity due to excess calories 2. Body mass index of 52.9 3. Osteoarthritis of the knees. 4. Chronic obstructive pulmonary disorder 5. Osteoarthritis of the lower back. 6. Hypertensive heart disease. 7. Supraventricular tachycardia 8. Gastroesophageal reflux disease 9. Asthma 10. Hypothyroidism 11. Anxiety disorder 12. Obstructive sleep apnea 13. Congestive heart failure 14. Depressive disorder 15. Osteoarthritis, right shoulder PAST SURGICAL HISTORY: 1. Vertical banded gastroplasty 2. Appendectomy 3. section 4. Cholecystectomy 5. Tonsillectomy 6. Right shoulder replacement 7. Bilateral knee replacement 8. Right carpal tunnel release HOME MEDICATIONS: ALLERGIES: Medications and Allergies Home Medications Medication Instructions Recorded Confirmed Type Cholecalciferol [Vitamin D3] 5,000 unit PO DAILY 10/03/18 11/10/18 History Cyclobenzaprine HCl 10 mg PO HS 10/03/18 11/10/18 History DULoxetine HCL [Cymbalta] 30 mg PO BID 10/03/18 11/10/18 History Furosemide [Lasix] 40 mg PO BID 10/03/18 11/10/18 History Gabapentin [Neurontin] 600 mg PO TID 10/03/18 11/10/18 History Grape Seed Extract 50 mg PO DAILY 10/03/18 11/10/18 History Lansoprazole 30 mg PO BID 10/03/18 11/10/18 History Levothyroxine Sodium 100 mcg PO QAM 10/03/18 11/10/18 History Losartan [Cozaar] 50 mg PO QAM 10/03/18 11/10/18 History Magnesium 250 mg PO DAILY 10/03/18 11/10/18 History Metoprolol Tartrate [Lopressor] 25 mg PO BID 10/03/18 11/10/18 History Montelukast Sodium [Singulair] 10 mg PO HS 10/03/18 11/10/18 History Multivitamins, Thera [Multivitamin 1 tab PO DAILY 10/03/18 11/10/18 History (formulary)] Potassium Chloride 10 meq PO DAILY 10/03/18 11/10/18 History Spironolactone [Aldactone] 25 mg PO DAILY 10/03/18 11/10/18 History HYDROcodone/APAP 5-325MG [Lee 1 tab PO Q4HR PRN 3 Days #18 tab 10/12/18 11/10/18 Rx 5-325] Allergies Allergy/AdvReac Type Severity Reaction Status Date / Time cephalexin [From Keflex] Allergy rash Verified 11/10/18 14:38 around mouth doxycycline Allergy Itching Verified 11/10/18 14:38 SOCIAL HISTORY: Past tobacco use. FAMILY HISTORY: No family history of ulcerative colitis disease or Crohn's disease. Family history of morbid obesity. No lupus in the family. No reports of stomach or esophageal cancer. REVIEW OF ORGAN SYSTEMS: CONSTITUTIONAL: At height of 5 feet 2 inches, her ideal body weight is 135 pounds. She comes in 288 pounds. Her body mass index is 52.7. She is 152 pounds overweight. HEENT: Denies any active troubles with vision or hearing. Has troubles with swallowing. ENDOCRINE: No diabetes. Has hypothyroidism. CARDIOVASCULAR: Past palpitations. No current heart attacks or chest pain. RESPIRATORY: Has daytime somnolence. Has asthma. GI: Denies any bright red blood per rectum. No diarrhea. Has constipation. Has gastroesophageal reflux disease. MUSCULOSKELETAL: Has lower back pain and joint pain. Has osteoarthritis of the knees. NEURO: No headaches. No seizure disorders. Has neuropathy. PSYCH: Has depression. No suicidal ideation. RHEUMATOLOGIC: No lupus. No rheumatoid arthritis. HEMATOLOGIC: Denies any abnormal bleeding or bruising. No personal history of DVTs. SKIN: No rash. No skin cancer. PHYSICAL EXAM: VITAL SIGNS: Height 5 foot 2 inches, weight 288 pounds. BMI 52.7 GENERAL: Well-developed in no acute distress. HEENT: No scleral icterus. Extraocular movements grossly intact. Hears conversational speech. No nasal drainage. NECK: Supple without lymphadenopathy. CHEST: Nonlabored respirations with equal bilateral excursions. CARDIOVASCULAR: Regular rate and regular rhythm. Distal 2+ pulses. ABDOMEN: Obese, soft, nontender, nondistended. Incisions look great MUSCULOSKELETAL: No clubbing, cyanosis. Gross strength 5/5 distal lower extremities. NEURO: No focal or lateralizing signs. Cranial nerves 2 through 12 grossly within normal limits. PSYCH: Appropriate affect. Alert and oriented to person, place and time. SKIN: Good skin turgor. Well perfused. ASSESSMENT: 1. Morbid obesity due to excess calories 2. Body mass index of 52.7 3. Osteoarthritis of the knees. 4. Chronic obstructive pulmonary disorder 5. Osteoarthritis of the lower back. 6. Hypertensive heart disease. 7. Supraventricular tachycardia 8. Gastroesophageal reflux disease 9. Asthma 10. Hypothyroidism 11. Anxiety disorder 12. Obstructive sleep apnea 13. Congestive heart failure 14. Depressive disorder 15. Osteoarthritis, right shoulder 16. Complications from bariatric procedure 17. Dysphagia PLAN: 1. She has previous vertical banded gastroplasty with complications. She is looking into revision to gastric bypass to correct complications from her prior surgery. 2. She is high risk of complications including leaks, adhesions and stricture from prior gastric surgeries. 3. Robotic assisted revision from vertical banded gastroplasty to gastric bypass described 4. Inpatient hospitalization more than 2 nights described. 5. DVT prophylaxis 6. Antibiotic prophylaxis Past Medical History Past Medical History: COPD, GERD/Reflux, Thyroid Disorder Additional Past Medical History / Comment(s): hiatal hernia,hx hypoglycemia,rapid heart rate History of Any Multi-Drug Resistant Organisms: None Reported Past Surgical History: Appendectomy, Bariatric Surgery, Section, Cholecystectomy, Joint Replacement, Tonsillectomy Additional Past Surgical History / Comment(s): rt shoulder replacement,tali knee replaced x 2,gastric stapling 30 yrs ago-later reversed,rt carpel tunnel x 2 Past Anesthesia/Blood Transfusion Reactions: No Reported Reaction Additional Past Anesthesia/Blood Transfusion Reaction / Comment(s): no hx blood transfusion Past Psychological History: No Psychological Hx Reported Smoking Status: Former smoker Past Alcohol Use History: None Reported Additional Past Alcohol Use History / Comment(s): quit smoking 1991,smoked approx 15 yrs-1 1/2 ppd Past Drug Use History: None Reported - Past Family History Mother Family Medical History: No Reported History Father Family Medical History: Cancer, COPD Medications and Allergies Home Medications Medication Instructions Recorded Confirmed Type Cholecalciferol [Vitamin D3] 5,000 unit PO DAILY 10/03/18 12/25/18 History Cyclobenzaprine HCl 10 mg PO HS 10/03/18 12/25/18 History DULoxetine HCL [Cymbalta] 30 mg PO BID 10/03/18 12/25/18 History Furosemide [Lasix] 40 mg PO BID 10/03/18 12/25/18 History Gabapentin [Neurontin] 600 mg PO TID 10/03/18 12/25/18 History Lansoprazole 30 mg PO BID 10/03/18 12/25/18 History Levothyroxine Sodium 100 mcg PO QAM 10/03/18 12/25/18 History Losartan [Cozaar] 50 mg PO QAM 10/03/18 12/25/18 History Magnesium 250 mg PO DAILY 10/03/18 12/25/18 History Metoprolol Tartrate [Lopressor] 25 mg PO BID 10/03/18 12/25/18 History Potassium Chloride 10 meq PO DAILY 10/03/18 12/25/18 History Spironolactone [Aldactone] 25 mg PO DAILY 10/03/18 12/25/18 History Allergies Allergy/AdvReac Type Severity Reaction Status Date / Time cephalexin [From Keflex] Allergy rash Verified 12/25/18 12:49 around mouth doxycycline Allergy Itching Verified 12/25/18 12:49 Surgical - Exam Vital Signs Temp Pulse Resp BP Pulse Ox 97.6 F 78 18 121/77 99 01/05/19 06:12 01/05/19 06:12 01/05/19 06:12 01/05/19 06:12 01/05/19 06:12
[2019-01-05] MEDS ORDERED: PROPOFOL 10 MG/ML 20 ML VIAL IV ONE (07:31)
[2019-01-05] MEDS ORDERED: MIDAZOLAM 2 MG/2 ML VIAL ONE (07:31)
[2019-01-05] MEDS ORDERED: KETOROLAC 30 MG/ML 1 ML VIAL ONE (07:31)
[2019-01-05] MEDS ORDERED: LIDOCAINE 1% INJ 10MG/ML (20 ML MDV) ONE (07:31)
[2019-01-05] MEDS ORDERED: fentaNYL (PF) 50 MCG/ML 2 ML AMP ONE (07:31)
[2019-01-05] MEDS ORDERED: SUCCINYLCHOLINE CHLORIDE 100 MG/5 ML SYR IV ONE (07:31)
[2019-01-05] MEDS ORDERED: GLYCOPYRROLATE 0.2 MG/ML 2 ML VIAL ONE (07:31)
[2019-01-05] MEDS ORDERED: PHENYLEPHRINE-0.9% NACL SYG 1 MG/10 ML SYRINGE ONE (07:31)
[2019-01-05] MEDS ORDERED: NEOSTIGMINE 1 MG/ML 10 ML VIAL ONE (07:31)
[2019-01-05] MEDS ORDERED: ROCURONIUM BROMIDE 10 MG/ML 10 ML VIAL IV ONE (07:31)
[2019-01-05] MEDS ORDERED: BUPIVACAIN-EPI 0.5%-1:200,000 30 ML VIAL SQ ONE (08:37)
[2019-01-05] MEDS ORDERED: diphenhydrAMINE 50 MG/ML 1 ML VIAL IVP PRN (10:56)
[2019-01-05] MEDS ORDERED: NALOXONE 0.4 MG/ML 1 ML VIAL IV PRN (10:56)
[2019-01-05] MEDS ORDERED: HYDROmorphone 1 MG/ML 1 ML SYRINGE IVP PRN (10:56)
[2019-01-05] MEDS ORDERED: HYDROcodone/APAP 15 ML SOLUTION PO PRN (10:56)
[2019-01-05] MEDS: HYDROmorphone 0.5 MG/0.5 ML SYRINGE IVP PRN ×2 (11:20→11:25)
--- NOTE | 2019-01-05 12:13 | P.OP ---
Date of Procedure: 01/05/19 Description of Procedure: SURGEON: ELI RUELAS MD PREOPERATIVE DIAGNOSES: 1. Morbid obesity due to excess calories 2. Body mass index of 52.7 3. Osteoarthritis of the knees. 4. Chronic obstructive pulmonary disorder 5. Osteoarthritis of the lower back. 6. Hypertensive heart disease. 7. Supraventricular tachycardia 8. Gastroesophageal reflux disease 9. Asthma 10. Hypothyroidism 11. Anxiety disorder 12. Obstructive sleep apnea 13. Congestive heart failure 14. Depressive disorder 15. Osteoarthritis, right shoulder 16. Complications from bariatric procedure 17. Dysphagia 18. History of vertical banded gastroplasty 19. Gastroparesis POSTOPERATIVE DIAGNOSES: 1. Morbid obesity due to excess calories 2. Body mass index of 52.7 3. Osteoarthritis of the knees. 4. Chronic obstructive pulmonary disorder 5. Osteoarthritis of the lower back. 6. Hypertensive heart disease. 7. Supraventricular tachycardia 8. Gastroesophageal reflux disease 9. Asthma 10. Hypothyroidism 11. Anxiety disorder 12. Obstructive sleep apnea 13. Congestive heart failure 14. Depressive disorder 15. Osteoarthritis, right shoulder 16. Complications from bariatric procedure 17. Dysphagia 18. History of vertical banded gastroplasty 19. Severe perigastric, pericolic, perigastric, intra-abdominal adhesions 20. Incisional epigastric incarcerated hernia, 3 cm 21. Gastroparesis OPERATION: 1. Robotic-assisted da Matt Xi laparoscopic extensive lysis of adhesions over 1.5 hrs 2. Robotic-assisted da Matt Xi laparoscopic reduction of incarcerated epigastric 3 cm subxiphoid incisional hernia COMPLICATIONS: None. Anesthesia: GETA, local Estimated Blood Loss (ml): 5 Pathology: none sent Condition: stable OPERATIVE FINDINGS: 1. Severe peritoneal adhesions involving small intestine, stomach, colon, omentum to abdominal wall prohibiting gastric bypass 2. Incarcerated epigastric subxiphoid incisional hernia 3 cm reduced. INDICATIONS: The patient is a 63-year-old female who presents with multiple prior bariatric procedures including vertical banded gastroplasty over 30+ years ago. She has developed complications from her VBG including persistent gastroesophageal reflux disease, dysphagia, gastroparesis. She presented for gastric bypass. Long preoperative discussion including high risk of the graft of complications, scar tissue into the abdomen, nutritional deficiencies were reviewed. Preoperative workup was completed. Informed consent was obtained. R obotic assisted laparoscopic approach was described. Benefits and risks of the procedure including but not limited to bleeding, infection, injury to the small bowel was described. Informed consent was obtained. DESCRIPTION OF PROCEDURE: Patient was brought to the operating room, placed in supine position. After general induction, the abdomen had been prepped and draped in standard sterile fashion. The robotic da Matt XI system was primed. After a timeout protocol was performed, the patient had been prepped and draped in standard sterile fashion. Prior to proceeding with surgery, an initial intraoperative esophagogastroduodenoscopy was performed. AnOlympus gastroscope was passed along the posterior oropharynx down to the distal stomach. No evidence of retained food was identified. The scope was positioned along the mid body of the stomach and left as a bougie. The robot was docked along the right lateral abdomen. The patient was repositioned in reverse Trendelenburg position of 16- degrees. A 5 mm 0 degrees laparoscopic trocar entry was performed along the left upper quadrant. The abdomen was insufflated to 15 mmHg pressure which was tolerated well. Diagnostic laparoscopy demonstrated severe intra-abdominal adhesions involving the bilateral upper abdomen, epigastrium. Small bowel was adhered to the abdominal wall of the midabdomen. No injury to the bowel, viscera or mesentery was identified. Next, 12 mm trocar was placed along the right upper quadrant under direct visualization to avoid the scar tissue along the right upper abdomen. An 8 mm trochars placed along the epigastrium, 15 cm distal to the xiphoid. Another 8 mm trocar was placed along the left lateral abdominal wall along the anterior axillary line. The 5 mm trocar with the left upper quadrant was exchanged for a 12 mm port. Please note that the ports were placed at least 10 cm away from each other and 15 cm from the target anatomy. The robot was docked. Instruments interchanged were graspers, vessel sealer, and scissors with cautery. Instruments were interchanged by the pharmacist assistant. I had sat at the console. The camera was positioned along the epigastrium. Initial inspection de monstrated the entire transverse colon completely adherent to the abdominal wall and with mild to moderate gaseous distention. Using a combination of blunt dissection including vessel sealer for lysis of adhesions, the transverse colon was carefully dissected free from the abdominal wall using vessel sealer. Adhesions along the right upper quadrant were similar addressed using vessel sealer. An adherent midjejunal loop to the abdominal wall along the epigastrium was also identified and dissected free from the abdominal wall using scissors without enterotomies. Despite mobilizing the transverse colon from the abdominal wall, a defect was found along the falciform ligament just below the xiphoid process consistent with a large incarcerated incisional hernia. Portion of the falciform ligament was incarcerated into the defect and reduced into the abdominal cavity using graspers and vessel sealer. The size of the fascial defect was 3 cm at the xiphoid process. A mesh repair was deferred as the case was clean contaminated. Next attention was brought to the stomach and liver where the anterior surface of the left lobe of the liver was completely adherent to the chest and abdominal wall. A dissection plane was found between the liver and the stomach and mobilized using vessel sealer. No gastrotomies had occurred. Despite extensive dissection and lysis of adhesions towards the upper pole of the stomach continued severe adhesions were identified prohibiting view of the lesser curvature of the stomach and hiatus. Attention was brought back to the transverse colon for identification of the ligament of Treitz. The small bowel was completely adherent to the transverse mesocolon and omentum. The rest of the jejunum had multiple interloop adhesions over a foot in length with features of intermittent small bowel dilation suspicious for intermittent bowel obstruction. With these findings, proceeding with a gastric bypass presented far more risk than benefit. Additionally, inadequate length of free small bowel was found to proceed with the gastric bypass. The severity of her adhesions were prohibitive for the rest of the case, hence gastric bypass was aborted. The endoscope was removed. Extensive lysis of adhesion was performed for over 1-1/2 hours. Multiple intra- abdominal images were obtained. No enterotomies were identified. Hemostasis was checked. The robot was undocked. All pneumoperitoneum and instruments were evacuated from the abdominal cavity. The incisions were reapproximated using 4-0 Monocryl in an interrupted subcuticular fashion. Please note along the trocar sites, local anesthetic was placed as a field block prior to insertion of all instruments. Liquid glue was applied to the skin. At the end of the procedure needle, sponge, and instrument count had been verified correct by the manager surgical. The patient was transferred to postanesthesia care unit in stable condition. Intraoperative images including findings were described to the patients family. Console time 92 minutes
[2019-01-05] MEDS: LACTATED RINGERS 1,000 ML IV SCH (13:29)
[2019-01-05] MEDS: KETOROLAC 30 MG/ML 1 ML VIAL IVP SCH ×3 (13:38→23:15)
[2019-01-05] MEDS: ONDANSETRON 4 MG/2 ML VIAL IVP SCH ×3 (13:39→23:15)
[2019-01-05] MEDS: 0.9% NACL WITH KCL 20 MEQ/L 1,000 ML IV SCH ×3 (14:39→21:17)
[2019-01-05] MEDS: SIMETHICONE 40 MG/0.6 ML DROPS 2,000 MG/30 ML BOTTLE PO SCH ×3 (14:40→23:16)
[2019-01-05] MEDS: HYOSCYAMINE ORAL DROPS 1.875 MG/15 ML BOTTLE PO SCH ×3 (14:40→23:16)
[2019-01-05 15:29] VITALS: BMI 52.8
[2019-01-05] MEDS: FUROSEMIDE 40 MG TAB PO SCH (15:34)
[2019-01-05] MEDS: GABAPENTIN 300 MG CAP PO SCH ×2 (15:34→21:18)
[2019-01-05] MEDS: ALBUTEROL NEBULIZED 2.5 MG/3 ML INHALATION SCH ×2 (16:04)
[2019-01-05] MEDS ORDERED: ceFAZolin 3 GM in SODIUM CHLORIDE 0.9% 100 ML IVPB SCH (18:45)
[2019-01-05] MEDS: DULoxetine HCL 30 MG CAPSULE.DR PO SCH (21:18)
[2019-01-05] MEDS: CYCLOBENZAPRINE 10 MG TAB PO SCH (21:18)
[2019-01-05] MEDS: METOPROLOL TARTRATE 25 MG TAB PO SCH (21:22)
[2019-01-06] MEDS: KETOROLAC 30 MG/ML 1 ML VIAL IVP SCH ×4 (05:09→23:16)
[2019-01-06] MEDS: SIMETHICONE 40 MG/0.6 ML DROPS 2,000 MG/30 ML BOTTLE PO SCH ×4 (05:09→23:16)
[2019-01-06] MEDS: ONDANSETRON 4 MG/2 ML VIAL IVP SCH ×4 (05:09→23:16)
[2019-01-06] MEDS: LEVOTHYROXINE 100 MCG TAB PO SCH (05:09)
[2019-01-06] MEDS: HYOSCYAMINE ORAL DROPS 1.875 MG/15 ML BOTTLE PO SCH ×2 (05:10→11:36)
[2019-01-06] MEDS: LACTATED RINGERS 1,000 ML IV SCH (08:07)
[2019-01-06] MEDS: 0.9% NACL WITH KCL 20 MEQ/L 1,000 ML IV SCH ×3 (08:07→17:09)
[2019-01-06] MEDS: DULoxetine HCL 30 MG CAPSULE.DR PO SCH ×2 (08:09→20:19)
[2019-01-06] MEDS: GABAPENTIN 300 MG CAP PO SCH ×3 (08:10→21:03)
[2019-01-06] MEDS: FUROSEMIDE 40 MG TAB PO SCH ×2 (08:10→16:49)
[2019-01-06] MEDS: ENOXAPARIN 40 MG/0.4 ML SYRINGE SQ SCH (08:10)
[2019-01-06] MEDS: MAGNESIUM OXIDE 400 MG TAB PO SCH (08:11)
[2019-01-06] MEDS: LOSARTAN 50 MG TAB PO SCH (08:11)
[2019-01-06] MEDS: POTASSIUM CHLORIDE ER 10 MEQ TAB.ER.PRT PO SCH (08:11)
[2019-01-06] MEDS: SPIRONOLACTONE 25 MG TAB PO SCH (08:11)
[2019-01-06] MEDS: METOPROLOL TARTRATE 25 MG TAB PO SCH ×2 (08:11→20:17)
[2019-01-06] MEDS: PANTOPRAZOLE 40 MG/10 ML VIAL IV SCH (08:11)
[2019-01-06 08:20] LABS: Anion Gap 5 mmol/L; Blood Urea Nitrogen 12 mg/dL (7-17); Calcium 8.6 mg/dL (8.4-10.2); Carbon Dioxide 27 mmol/L (22-30); Chloride 107 mmol/L (98-107); Glucose 83 mg/dL (74-99); Sodium 139 mmol/L (137-145)
[2019-01-06] MEDS ORDERED: BENZOCAINE/MENTHOL LOZENG 1 EACH LOZENGE MUCOUS MEM PRN (13:43)
--- NOTE | 2019-01-06 13:52 | P.PN ---
<Anabell Shah A - Last Filed: 01/06/19 13:52> Subjective Progress Note Date: 01/06/19 CHIEF COMPLAINT: Complications of vertical banded gastroplasty HISTORY OF PRESENT ILLNESS: Patient examined at the bedside this morning. Patient is s/p attempted gastric bypass but aborted secondary to extensive lysis of adhesions and reduction of incarcerated epigastric 3 cm subxiphoid incisional hernia. POD #1. Patient reports her pain is tolerable at this time. She is tolerating diet. Denies nausea or vomiting. She reports sore throat secondary to ET tube. Denies dysphagia. Patient required straight cath yesterday around 1900. She reports voiding once overnight but nothing since then. Spoke with nursing and got patient up to the bathroom. Patient was able to void 300cc. Post void residual was 30cc. Patient O2 sats 92-93% on room air. Patient using IS. Encouraged use. Patient has not been OOB yet this morning. Encouraged patient to be OOB and in the chair today. Blood pressure stable with SBP 102-109. Heartrate 80-90s. Afebrile. Electrolytes WNL. PHYSICAL EXAM: VITAL SIGNS: Reviewed. GENERAL: Well-developed in no acute distress. HEENT: No sclera icterus. Extraocular movements grossly intact. Moist buccal mucosa. Head is atraumatic, normocephalic. ABDOMEN: Obese. Soft. Nondistended. Nontender. Laparoscopic surgical sites clean dry and intact without drainage. NEUROLOGIC: Alert and oriented. Cranial nerves II through XII grossly intact. ASSESSMENT: 1. Morbid obesity due to excess calories 2. Body mass index of 52.7 3. Osteoarthritis of the knees. 4. Chronic obstructive pulmonary disorder 5. Osteoarthritis of the lower back. 6. Hypertensive heart disease. 7. Supraventricular tachycardia 8. Gastroesophageal reflux disease 9. Asthma 10. Hypothyroidism 11. Anxiety disorder 12. Obstructive sleep apnea 13. Congestive heart failure 14. Depressive disorder 15. Osteoarthritis, right shoulder 16. Complications from bariatric procedure 17. Dysphagia 18. History of vertical banded gastroplasty 19. Gastroparesis PLAN: 1. Continue current diet 2. Pain control 3. Incentive spirometry. Encouraged use 10x/hour 4. Activity as tolerated. Patient encouraged to be OOB and ambulatory today 5. Monitor I/O. Continue to monitor urine output. 6. Possible discharge this evening after patient is evaluated by Dr. Novoa Nurse practitioner note has been reviewed by physician. Signing provider agrees with the documented findings, assessment, and plan of care. Objective - Vital Signs Vital signs: Vital Signs Temp 98.2 F 01/06/19 07:40 Pulse 98 01/06/19 07:40 Resp 15 01/06/19 07:40 BP 102/59 01/06/19 07:40 Pulse Ox 93 L 01/06/19 07:40 Intake & Output 01/05/19 01/06/19 01/06/19 18:59 06:59 18:59 Intake Total 1300 250 660 Output Total 60 290 26 Balance 1240 -40 634 Weight 131.088 kg Intake: IV 1300 Oral 250 660 Output: Urine 50 290 26 Uretheral (Kiran) 290 Estimated Blood Loss 10 Other: Voiding Method Toilet Toilet # Voids 250 1 # Bowel Movements 0 - Labs CBC & Chem 7: 01/06/19 07:11 Assessment and Plan (1) Adult BMI 50.0-59.9 kg/sq m Current Visit: No Status: Acute Code(s): Z68.43 - BODY MASS INDEX (BMI) 50- 59.9, ADULT SNOMED Code(s): 802803342 (2) Complications of bariatric procedures Current Visit: No Status: Acute Code(s): K95.89 - OTHER COMPLICATIONS OF OTHER BARIATRIC PROCEDURE SNOMED Code(s): 89796279 (3) Gastroesophageal reflux disease Current Visit: No Status: Acute Code(s): K21.9 - GASTRO-ESOPHAGEAL REFLUX DISEASE WITHOUT ESOPHAGITIS SNOMED Code(s): 669373133 (4) Gastroparesis Current Visit: No Status: Acute Code(s): K31.84 - GASTROPARESIS SNOMED Code(s): 110009665 (5) Morbid obesity due to excess calories Current Visit: No Status: Acute Code(s): E66.01 - MORBID (SEVERE) OBESITY DUE TO EXCESS CALORIES SNOMED Code(s): 601726302 (6) Urinary retention Current Visit: No Status: Acute Code(s): R33.9 - RETENTION OF URINE, UNSPECIFIED SNOMED Code(s): 640477498 <Ina Nvooa - Last Filed: 01/07/19 09:54> Subjective Patient seen and evaluated. I personally called her this morning to her room and described her care plan. She was again revisited this afternoon. Patient voiding issues resolved with Flomax. Prolonged discussion of dietary plans also reviewed. Discharge home tomorrow. May resume home medications. Objective - Vital Signs Vital signs: Vital Signs Temp 97.5 F L 01/07/19 07:30 Pulse 96 01/07/19 07:30 Resp 18 01/07/19 07:30 BP 137/75 01/07/19 07:30 Pulse Ox 90 L 01/07/19 07:30 Intake & Output 01/06/19 01/07/19 01/07/19 18:59 06:59 18:59 Intake Total 900 Output Total 26 1500 Balance 874 -1500 Intake: Oral 900 Output: Urine 26 1500 Other: Voiding Method Toilet # Voids 1 # Bowel Movements 0 - Labs CBC & Chem 7: 01/06/19 07:11
[2019-01-06] MEDS ORDERED: TAMSULOSIN 0.4 MG CAP.ER.24H PO STA (13:56)
[2019-01-06] MEDS: CYCLOBENZAPRINE 10 MG TAB PO SCH (20:19)
[2019-01-07 03:06] VITALS: RESP 18
[2019-01-07] MEDS: 0.9% NACL WITH KCL 20 MEQ/L 1,000 ML IV SCH (04:04)
[2019-01-07] MEDS: LACTATED RINGERS 1,000 ML IV SCH (04:34)
[2019-01-07] MEDS: KETOROLAC 30 MG/ML 1 ML VIAL IVP SCH (05:19)
[2019-01-07] MEDS: LEVOTHYROXINE 100 MCG TAB PO SCH (05:19)
[2019-01-07] MEDS: ONDANSETRON 4 MG/2 ML VIAL IVP SCH ×2 (05:19→11:22)
[2019-01-07] MEDS: SIMETHICONE 40 MG/0.6 ML DROPS 2,000 MG/30 ML BOTTLE PO SCH ×2 (05:19→11:22)
[2019-01-07 07:59] VITALS: BP 137/75; PULSE 96; TEMP 97.5
[2019-01-07] MEDS: POTASSIUM CHLORIDE ER 10 MEQ TAB.ER.PRT PO SCH (09:23)
[2019-01-07] MEDS: GABAPENTIN 300 MG CAP PO SCH (09:23)
[2019-01-07] MEDS: PANTOPRAZOLE 40 MG/10 ML VIAL IV SCH (09:23)
[2019-01-07] MEDS: MAGNESIUM OXIDE 400 MG TAB PO SCH (09:23)
[2019-01-07] MEDS: SPIRONOLACTONE 25 MG TAB PO SCH (09:23)
[2019-01-07] MEDS: LOSARTAN 50 MG TAB PO SCH (09:23)
[2019-01-07] MEDS: METOPROLOL TARTRATE 25 MG TAB PO SCH (09:24)
[2019-01-07] MEDS: FUROSEMIDE 40 MG TAB PO SCH (09:24)
[2019-01-07] MEDS: ENOXAPARIN 40 MG/0.4 ML SYRINGE SQ SCH (09:26)
[2019-01-07] MEDS: DULoxetine HCL 30 MG CAPSULE.DR PO SCH (09:39)
--- NOTE | 2019-01-07 10:53 | P.DS ---
Providers Date of admission: 01/05/19 05:48 Expected date of discharge: 01/07/19 Attending physician: Ina Novoa Primary care physician: Jeff Richardsont - Discharge Diagnosis(es) (1) Adult BMI 50.0-59.9 kg/sq m Current Visit: No Status: Acute (2) Complications of bariatric procedures Current Visit: No Status: Acute (3) Gastroesophageal reflux disease Current Visit: No Status: Acute (4) Gastroparesis Current Visit: No Status: Acute (5) Morbid obesity due to excess calories Current Visit: No Status: Acute (6) Urinary retention Current Visit: No Status: Acute Hospital Course: 63-year-old female who is status post attempted gastric bypass but aborted secondary to extensive lysis of adhesions and reduction of incarcerated epigastric 3 cm subxiphoid incisional hernia. Patient is doing well postoperatively without any immediate complications. She did develop urinary retention and received a one time dose of Flomax with resolution of her urinary retention. Pain is controlled with oral medications. Tolerating diet. No nausea or vomiting. Vital signs stable. She is stable for discharge home today. Please see EMR for further hospital course details. Discharge Diagnosis: 1. Morbid obesity due to excess calories 2. Body mass index of 52.7 3. Osteoarthritis of the knees. 4. Chronic obstructive pulmonary disorder 5. Osteoarthritis of the lower back. 6. Hypertensive heart disease. 7. Supraventricular tachycardia 8. Gastroesophageal reflux disease 9. Asthma 10. Hypothyroidism 11. Anxiety disorder 12. Obstructive sleep apnea 13. Congestive heart failure 14. Depressive disorder 15. Osteoarthritis, right shoulder 16. Complications from bariatric procedure 17. Dysphagia 18. History of vertical banded gastroplasty 19. Gastroparesis 20. Postoperative urinary retention, an unexpected by potential outcome of surgery, resolved Nurse practitioner note has been reviewed by physician. Signing provider agrees with the documented findings, assessment, and plan of care. Patient Condition at Discharge: Stable Plan - Discharge Summary Discharge Rx Participant: No New Discharge Prescriptions: New Ibuprofen [Motrin] 600 mg PO Q8HR PRN #20 tab PRN Reason: Pain Continue Cholecalciferol [Vitamin D3] 5,000 unit PO DAILY Spironolactone [Aldactone] 25 mg PO DAILY Potassium Chloride 10 meq PO DAILY Metoprolol Tartrate [Lopressor] 25 mg PO BID Lansoprazole 30 mg PO BID Losartan [Cozaar] 50 mg PO QAM Levothyroxine Sodium 100 mcg PO QAM Furosemide [Lasix] 40 mg PO BID DULoxetine HCL [Cymbalta] 30 mg PO BID Cyclobenzaprine HCl 10 mg PO HS Gabapentin [Neurontin] 600 mg PO TID Magnesium Oxide [Mag-Ox] 250 mg PO DAILY Discharge Medication List Cholecalciferol [Vitamin D3] 5,000 unit PO DAILY 10/03/18 [History] Cyclobenzaprine HCl 10 mg PO HS 10/03/18 [History] DULoxetine HCL [Cymbalta] 30 mg PO BID 10/03/18 [History] Furosemide [Lasix] 40 mg PO BID 10/03/18 [History] Lansoprazole 30 mg PO BID 10/03/18 [History] Levothyroxine Sodium 100 mcg PO QAM 10/03/18 [History] Losartan [Cozaar] 50 mg PO QAM 10/03/18 [History] Metoprolol Tartrate [Lopressor] 25 mg PO BID 10/03/18 [History] Potassium Chloride 10 meq PO DAILY 10/03/18 [History] Spironolactone [Aldactone] 25 mg PO DAILY 10/03/18 [History] Gabapentin [Neurontin] 600 mg PO TID 01/05/19 [History] Magnesium Oxide [Mag-Ox] 250 mg PO DAILY 01/05/19 [History] Ibuprofen [Motrin] 600 mg PO Q8HR PRN #20 tab 01/07/19 [Rx] Follow up Appointment(s)/Referral(s): Ina Novoa MD [STAFF PHYSICIAN] - 01/09/19 10:00 am Patient Instructions/Handouts: Lysis of Abdominal Adhesions (DC), Ventral Hernia (DC) Activity/Diet/Wound Care/Special Instructions: No lifting over 4 pounds one week. May shower. No bathtub soaks. Take Tylenol as needed for pain. Discharge Disposition: HOME SELF-CARE
== END 2019-01-07 13:17 | disposition home or self-care (01) | DRG 336 ==
LOC: 2ORMAIN 05:48 → 4SSUR 11:49
PROVIDERS: ADMIT Surgery Plastic and Reconstructive Surgery; ATTEND Surgery Plastic and Reconstructive Surgery
PROC: 0WQF4ZZ Repair Abdominal Wall, Percutaneous Endoscopic Approach (ICD-10-PCS; 2019-01-05)
PROC: 0DJ08ZZ Inspection of Upper Intestinal Tract, Via Natural or Artificial Opening Endoscopic (ICD-10-PCS; 2019-01-05)
PROC: 8E0W4CZ Robotic Assisted Procedure of Trunk Region, Percutaneous Endoscopic Approach (ICD-10-PCS; 2019-01-05)
PROC: 0FN20ZZ Release Left Lobe Liver, Open Approach (ICD-10-PCS; 2019-01-05)
PROC: 0DNL4ZZ Release Transverse Colon, Percutaneous Endoscopic Approach (ICD-10-PCS; principal; 2019-01-05 07:40)
DX: K95.09 Other complications of gastric band procedure (principal); Z68.43 Body mass index [BMI] 50.0-59.9, adult; K43.0 Incisional hernia with obstruction, without gangrene; K66.0 Peritoneal adhesions (postprocedural) (postinfection); E66.01 Morbid (severe) obesity due to excess calories; M17.0 Bilateral primary osteoarthritis of knee; M47.9 Spondylosis, unspecified; I50.9 Heart failure, unspecified; I11.0 Hypertensive heart disease with heart failure; K21.9 Gastro-esophageal reflux disease without esophagitis; E03.9 Hypothyroidism, unspecified; F41.9 Anxiety disorder, unspecified; G47.33 Obstructive sleep apnea (adult) (pediatric); F32.9 Major depressive disorder, single episode, unspecified; M19.011 Primary osteoarthritis, right shoulder; R13.10 Dysphagia, unspecified; K31.84 Gastroparesis; K59.00 Constipation, unspecified; J44.9 Chronic obstructive pulmonary disease, unspecified; Z53.09 Procedure and treatment not carried out because of other contraindication; R33.9 Retention of urine, unspecified; Z71.3 Dietary counseling and surveillance; K44.9 Diaphragmatic hernia without obstruction or gangrene; Z79.890 Hormone replacement therapy; Z79.899 Other long term (current) drug therapy; Z90.49 Acquired absence of other specified parts of digestive tract; Z96.611 Presence of right artificial shoulder joint; Z96.653 Presence of artificial knee joint, bilateral; Z87.891 Personal history of nicotine dependence; Z88.1 Allergy status to other antibiotic agents; Z83.3 Family history of diabetes mellitus; Z82.5 Family history of asthma and other chronic lower respiratory diseases
CPT/HCPCS: 80048; 86850; 86900; 86901; 94640

== ENCOUNTER → 2019-01-09 | Outpatient (CLI) | payer BC ==
[2019-01-09 10:19] VITALS: BP 147/83; PULSE 94; RESP 16; TEMP 97.5; BMI 53.6
--- NOTE | 2019-01-09 13:00 | P.PN ---
Subjective Progress Note Date: 01/09/19 DATE OF SERVICE: 01/09/2019 CHIEF COMPLAINT: Status post lysis of adhesions. HISTORY OF PRESENT ILLNESS: Ina Larkin is a 63-year-old female who comes in with lifelong morbid obesity. She had vertical banded gastroplasty with complications of epigastric abdominal pain including multiple revisions in the past, including reversal of gastric bypass. She had her first weight loss surgery over 30 years ago in 1986 for gastric bypass and had a revision with "undo of her surgery." Most weight loss was after 1 year at 294 pounds to 171 pounds. She comes in with weight gain including worsening abdominal pain. She presents upon follow-up of aborted gastric bypass for extensive lysis of adhesions, 01/05/19. She is POD 5. She comes in disappointed that she could not get her bypass despite past attempts. No fevers or chills. No nausea or vomiting. She is tolerating diet. At height of 5 feet 2 inches, her ideal body weight is 135 pounds. Highest weight was 294 pounds. She comes in 293 pounds unchanged from 1 month ago. Her body mass index was 53.9 now 53.6. She is 157 pounds overweight. PHYSICAL EXAM: VITAL SIGNS: Height 5 foot 2 inches, weight 292 pounds. BMI 53.6 Vital Signs Temp 97.5 F L 01/09/19 10:15 Pulse 94 01/09/19 10:15 Resp 16 01/09/19 10:15 BP 147/83 01/09/19 10:15 Pulse Ox GENERAL: Well-developed in no acute distress. HEENT: No scleral icterus. Extraocular movements grossly intact. Hears conversational speech. No nasal drainage. NECK: Supple without lymphadenopathy. CHEST: Nonlabored respirations with equal bilateral excursions. CARDIOVASCULAR: Regular rate and regular rhythm. Distal 2+ pulses. ABDOMEN: Obese, soft, incisions are clean, dry and intact. All incisions without cellulitis or infection. MUSCULOSKELETAL: No clubbing, cyanosis. Gross strength 5/5 distal lower extremities. NEURO: No focal or lateralizing signs. Cranial nerves 2 through 12 grossly within normal limits. PSYCH: Appropriate affect. Alert and oriented to person, place and time. SKIN: Good skin turgor. Well perfused. ASSESSMENT: 1. Morbid obesity due to excess calories 2. Body mass index of 53.6 3. Osteoarthritis of the knees. 4. Chronic obstructive pulmonary disorder 5. Osteoarthritis of the lower back. 6. Hypertensive heart disease. 7. Supraventricular tachycardia 8. Gastroesophageal reflux disease 9. Asthma 10. Hypothyroidism 11. Anxiety disorder 12. Obstructive sleep apnea 13. Congestive heart failure 14. Depressive disorder 15. Osteoarthritis, right shoulder 16. Complications from bariatric procedure 17. Dysphagia 18. Gastroparesis PLAN: 1. Alternatives for weight loss including dietary surveillance and counseling were given. 2. A ketogenic diet with low-carb reviewed. 3. Weight loss between 15-20 pounds a month possible with adjustment of diet. 4. She is very high risk for any future potential gastric bypass as she would be another attempted procedure from past reversal. She has severe adhesions and high risk for obstruction. 5. Patient was also offered a second opinion should she choose. 6. Dietary journal including My[employer]itness Pal described. 7. Wound care instructions described. 8. Follow-up monthly for dietary management. Objective - Vital Signs Vital signs: Vital Signs Temp 97.5 F L 01/09/19 10:15 Pulse 94 01/09/19 10:15 Resp 16 01/09/19 10:15 BP 147/83 01/09/19 10:15 Pulse Ox Intake & Output 01/08/19 01/09/19 01/09/19 18:59 06:59 18:59 Weight 132.903 kg
== END | disposition home or self-care (01) ==
LOC: BARWHC3 09:59
PROVIDERS: ATTEND Surgery Plastic and Reconstructive Surgery
DX: E66.01 Morbid (severe) obesity due to excess calories (principal); M17.0 Bilateral primary osteoarthritis of knee; J44.9 Chronic obstructive pulmonary disease, unspecified; M47.816 Spondylosis without myelopathy or radiculopathy, lumbar region; I47.1 Supraventricular tachycardia; K21.9 Gastro-esophageal reflux disease without esophagitis; E03.9 Hypothyroidism, unspecified; F41.9 Anxiety disorder, unspecified; G47.33 Obstructive sleep apnea (adult) (pediatric); I11.0 Hypertensive heart disease with heart failure; I50.9 Heart failure, unspecified; F32.9 Major depressive disorder, single episode, unspecified; M19.011 Primary osteoarthritis, right shoulder; K95.89 Other complications of other bariatric procedure; R13.10 Dysphagia, unspecified; K31.84 Gastroparesis; Z68.43 Body mass index [BMI] 50.0-59.9, adult; Z98.84 Bariatric surgery status; Z98.890 Other specified postprocedural states
CPT/HCPCS: 99211

== ENCOUNTER → 2019-09-07 | Outpatient (CLI) | payer BC ==
[2019-09-07 17:00] LABS: Hemoglobin A1C 6.4 % (4.0-6.0)
[2019-09-07 17:02] LABS: African American GFR (CKD) 79.4 (60.0-200.0); Albumin 4.6 g/dL (3.80-4.90); Albumin/Globulin Ratio 2.3 (1.60-3.17); Anion Gap 7.1 mmol/L (4.00-12.00); BUN/Creat Ratio 17.78 Ratio (12.00-20.00); Calcium 9.4 mg/dL (8.7-10.3); Carbon Dioxide 31.9 mmol/L (21.6-31.8); Non-African American GFR(CKD) 68.5 (60.0-200.0); Potassium 4.2 mmol/L (3.5-5.5); Total Bilirubin 0.4 mg/dL (0.3-1.2); Total Protein 6.6 g/dL (6.2-8.2)
== END | disposition home or self-care (01) ==
LOC: LABWHC1 10:43
PROVIDERS: ATTEND Internal Medicine Endocrinology, Diabetes & Metabolism
DX: E11.9 Type 2 diabetes mellitus without complications (principal); E55.9 Vitamin D deficiency, unspecified; E21.3 Hyperparathyroidism, unspecified
CPT/HCPCS: 36415; 80053; 82306; 83036; 83970; 84443

== ENCOUNTER 2021-10-10 16:12 | Inpatient (IN) | payer BC ==
[2021-10-10 16:43] LABS: Basophils # (A) 0.1 k/uL (0-0.2); Basophils % (A) 1 %; Eosinophils # (A) 0.3 k/uL (0-0.7); Eosinophils % (A) 5 %; HCT 36.6 % (34.0-46.0); HGB 11.7 gm/dL (11.4-16.0); Lymphocytes # (A) 1.7 k/uL (1.0-4.8); Lymphocytes % (A) 28 %; MCH 28.2 pg (25.0-35.0); MCHC 32.1 g/dL (31.0-37.0); MCV 87.9 fL (80.0-100.0); Mean Platelet Volume 8.1; Monocytes # (A) 0.4 k/uL (0-1.0); Monocytes % (A) 6 %; Neutrophils # (A) 3.4 k/uL (1.3-7.7); Neutrophils % (A) 57 %; Platelet Count 251 k/uL (150-450); RBC 4.17 m/uL (3.80-5.40); RDW 15.8 % (11.5-15.5)
[2021-10-10 16:58] LABS: INR 0.9 (<1.2); Partial Thromboplastin Time 22.2 sec (22.0-30.0); Prothrombin Time 10.1 sec (9.0-12.0)
[2021-10-10 17:07] LABS: Albumin 4.1 g/dL (3.5-5.0); Calcium 8.9 mg/dL (8.4-10.2); Total Bilirubin 0.8 mg/dL (0.2-1.3); Total Protein 7.1 g/dL (6.3-8.2)
[2021-10-10 17:10] LABS: Potassium 5.3 mmol/L (3.5-5.1)
--- NOTE | 2021-10-10 17:15 | XR ---
EXAMINATION TYPE: XR chest 2V DATE OF EXAM: 10/10/2021 COMPARISON: NONE HISTORY: Short of breath TECHNIQUE: 2 view FINDINGS: Heart is normal. Lungs are clear of infiltrate. There is no heart failure. There are no hil ar masses. There is some probable pleural thickening at the left cardiophrenic angle. There is right shoulder prosthesis. Bony thorax is intact. IMPRESSION: There is some mild pleural thickening and atelectasis at the left cardiophrenic angle. No rmal heart.
--- NOTE | 2021-10-10 18:12 | ED ---
General Adult HPI - General Chief complaint: Recheck/Abnormal Lab/Rx Stated complaint: Congestive Heart Failure Time Seen by Provider: 10/10/21 18:15 Source: patient, RN notes reviewed, old records reviewed Mode of arrival: wheelchair Limitations: no limitations - History of Present Illness Initial comments: 66-year-old female, alert and oriented 4, presents to the emergency room with complaints of increasing shortness of breath, weight gain 14 pounds over the past couple of weeks and increased swelling to her lower extremities and abdomen. Patient was sent by her primary care Dr Song for evaluation for possible congestive heart failure. She does take Lasix 60 mg in the morning 40 mg at night. She states that she did have coronavirus in August. She has history of COPD, morbid obesity, appendectomy cholecystectomy. She denies any chest pain, nausea, vomiting, diarrhea or fevers. -: week(s) (2) Severity scale (1-10): 0 Improves with: none Worsens with: other (exertion) Associated Symptoms: shortness of breath, other (Weight gain) - Related Data Home Medications Medication Instructions Recorded Confirmed Cyclobenzaprine HCl 10 mg PO HS@0 10/03/18 10/10/21 DULoxetine HCL [Cymbalta] 30 mg PO BID@0700,1800 10/03/18 10/10/21 Furosemide [Lasix] 40 mg PO HS@2200 10/03/18 10/10/21 Lansoprazole 30 mg PO BID@0700,2200 10/03/18 10/10/21 Levothyroxine Sodium 100 mcg PO DAILY@0700 10/03/18 10/10/21 Losartan [Cozaar] 50 mg PO DAILY@0700 10/03/18 10/10/21 Metoprolol Tartrate [Lopressor] 25 mg PO BID@0700,1500 10/03/18 10/10/21 Potassium Chloride [Potassium 10 meq PO BID@0700,2200 10/03/18 10/10/21 Chloride ER] Spironolactone [Aldactone] 25 mg PO DAILY@0700 10/03/18 10/10/21 Albuterol Nebulized [Ventolin 2.5 mg INHALATION RT-Q6H PRN 10/10/21 10/10/21 Nebulized] Cholecalciferol (Vitamin D3) 125 mcg PO DAILY@0700 10/10/21 10/10/21 [Vitamin D3 (125 MCG = 5,000 IU)] Furosemide [Lasix] 60 mg PO DAILY@69910/10/21 10/10/21 Gabapentin 600 mg PO TID@0700,1800,2200 10/10/21 10/10/21 Grape Seed Extract 300mg 300 mg PO DAILY@69910/10/21 10/10/21 Magnesium Oxide [Solorzano] 500 mg PO DAILY@69910/10/21 10/10/21 Montelukast Sodium [Singulair] 10 mg PO HS@219910/10/21 10/10/21 Turmeric Root Extract [Turmeric] 500 mg PO DAILY@69910/10/21 10/10/21 levETIRAcetam [Keppra] 250 mg PO DAILY@1800 10/10/21 10/10/21 levETIRAcetam [Keppra] 500 mg PO DIRECTED 10/10/21 10/10/21 Allergies Allergy/AdvReac Type Severity Reaction Status Date / Time cephalexin [From Keflex] Allergy rash Verified 10/10/21 19:00 around mouth doxycycline Allergy Itching Verified 10/10/21 19:00 Review of Systems ROS Statement: Those systems with pertinent positive or pertinent negative responses have been documented in the HPI. ROS Other: All systems not noted in ROS Statement are negative. Past Medical History Past Medical History: COPD, GERD/Reflux, Thyroid Disorder Additional Past Medical History / Comment(s): hiatal hernia,hx hypoglycemia,rapid heart rate History of Any Multi-Drug Resistant Organisms: None Reported Past Surgical History: Appendectomy, Bariatric Surgery, Section, Cholecystectomy, Joint Replacement, Tonsillectomy Additional Past Surgical History / Comment(s): rt shoulder replacement,tali knee replaced x 2,gastric stapling 30 yrs ago-later reversed,rt carpel tunnel x 2, abdominal lysis of adhesions and failed rou-en-y 01/05/19 w/wesly Past Anesthesia/Blood Transfusion Reactions: No Reported Reaction Additional Past Anesthesia/Blood Transfusion Reaction / Comment(s): no hx blood transfusion Past Psychological History: No Psychological Hx Reported Smoking Status: Former smoker Past Alcohol Use History: None Reported Past Drug Use History: Marijuana - Past Family History Mother Family Medical History: No Reported History Father Family Medical History: Cancer, COPD General Exam Limitations: no limitations General appearance: alert, in no apparent distress Eye exam: Present: normal appearance, EOMI. Absent: scleral icterus, conjunctival injection ENT exam: Present: normal exam, normal oropharynx, mucous membranes moist Respiratory exam: Present: wheezes (Inspiratory and expiratory), other (Tachypnea). Absent: rhonchi, stridor, chest wall tenderness, accessory muscle use, decreased breath sounds Cardiovascular Exam: Present: normal rhythm, tachycardia GI/Abdominal exam: Present: distended. Absent: tenderness Extremities exam: Present: normal capillary refill, pedal edema. Absent: tenderness (1+), calf tenderness Neurological exam: Present: alert, oriented X3, normal gait Psychiatric exam: Present: normal affect, normal mood Skin exam: Present: warm, dry, intact, normal color. Absent: rash, cyanosis, diaphoretic, petechiae Course Vital Signs 10/10/21 10/10/21 10/10/21 16:22 18:32 21:17 Temperature 97.6 F Pulse Rate 107 H 93 96 Pulse Rate [ Bilateral M1A1 Tank Crewman ] Respiratory 20 18 18 Rate Blood Pressure 134/80 144/83 111/59 Blood Pressure [Left Arm Supine] O2 Sat by Pulse 96 98 94 L Oximetry 10/10/21 22:48 Temperature 98.9 F Pulse Rate Pulse Rate [ 106 H Bilateral M1A1 Tank Crewman ] Respiratory 20 Rate Blood Pressure Blood Pressure 130/74 [Left Arm Supine] O2 Sat by Pulse 94 L Oximetry EKG Findings - EKG Results: EKG: sinus rhythm (Ventricular rate of 97, [place] .160, QRS 0.74, QTC 0.472), no acute changes, not changed from: (10-10-18) Medical Decision Making - Medical Decision Making 66-year-old patient presents for evaluation for possible congestive heart failure. Patient was sent by Dr Song for increased swelling and weight gain 14 pounds over the past 2 weeks. She states that her abdomen feels swollen and distended and she has increasing shortness of breath with exertion. There is no evidence of evidence of leukocytosis a hemoglobin and hematocrit are stable. Electrolytes show potassium of 5.3 with some hemolysis. Bun and creatinine are within normal limits, troponin is negative at 0.012 and BNP is 96. D-dimer is elevated at 2.67 Chest x-ray shows mild pleural thickening and atelectasis at the left car diophrenic angle. There is no hilar masses. Lungs are clear of infiltrate. EKG shows normal sinus change from 10/10/2018. There is no evidence of pulmonary embolism on CT. Thoracic aorta is intact. There is no evidence of aneurysm or dissection, ascending aorta measures 3 cm. No evidence of pleural effusion and lungs are clear consolidation. There is minimal subsegmental atelectasis at the right lung base no pericardial effusion. Patient is tachycardic at 107 oxygen saturation 96%. Lungs sounds respiratory expiratory wheezes, patient has a history of COPD. Coronavirus swab is positive. Patient was diagnosed with coronavirus in August. Case discussed with Dr. Cox patient will be admitted to the hospital for evaluation of shortness of breath with exertion. - Lab Data Result diagrams: 10/10/21 Unknown 10/10/21 Unknown Lab Results 10/10/21 10/10/21 Range/Units 18:28 21:05 D-Dimer 2.67 H (<0.60) mg/L FEU Coronavirus (PCR) Detected A (Not Detectd) Disposition Clinical Impression: Elevated d-dimer, Shortness of breath on exertion Disposition: ADMITTED IP TO THIS HOSP Decision Date: 10/10/21 Decision Time: 21:00
--- NOTE | 2021-10-10 20:55 | CT ---
EXAMINATION TYPE: CT angio chest DATE OF EXAM: 10/10/2021 COMPARISON: HISTORY: Elevated d-dimer, SOB CT DLP: 889.9 mGycm Automated exposure control for dose reduction was used. CONTRAST: Performed with IV Contrast, patient injected with 100 mL of Isovue 370. There are Three-D postprocessed images. The lungs are clear of consolidation. There is no pleural effusion. There is minimal subsegmental ate lectasis right lung base. There is no pericardial effusion. Heart size is normal. There are no hilar masses. There is no mediastinal adenopathy. Thoracic aorta is intact. There is no evidence of aneurysm or dissection. The ascending aorta measures 3 cm. There is normal contrast opacification of the pulmonary arteries. There are no filling defects. The thoracic spine is intact. There is no compression fracture. Sternum is intact. There is previous gastric surgery. IMPRESSION: No evidence of pulmonary embolism.
[2021-10-10] MEDS ORDERED: ACETAMINOPHEN TAB 325 MG TAB PO PRN (21:15)
[2021-10-10] MEDS ORDERED: NALOXONE 0.4 MG/ML 1 ML VIAL IV PRN (21:15)
[2021-10-10] MEDS ORDERED: ALBUTEROL NEBULIZED 2.5 MG/3 ML INHALATION PRN (21:17)
[2021-10-10] MEDS ORDERED: FUROSEMIDE 40 MG TAB PO SCH (22:00)
[2021-10-10] MEDS: MONTELUKAST 10 MG TAB PO SCH (22:34)
[2021-10-10] MEDS: GABAPENTIN 300 MG CAP PO SCH (22:35)
[2021-10-10] MEDS: CYCLOBENZAPRINE 10 MG TAB PO SCH (22:35)
[2021-10-10] MEDS: PANTOPRAZOLE 40 MG TABLET PO SCH (22:35)
[2021-10-10] MEDS: levETIRAcetam 500 MG TAB PO SCH (22:56)
[2021-10-11 01:14] LABS: Appearance,Urine Clear (Clear); Bilirubin,Urine Negative (Negative); Blood,Urine Negative (Negative); Color,Urine Light Yellow; Glucose,Urine (UA) Negative (Negative); Ketones,Urine Negative (Negative); Leukocyte Esterase,Urine Negative (Negative); Nitrite,Urine Negative (Negative); PH, Urine 6.5 (5.0-8.0); Protein,Urine Negative (Negative); Specific Gravity,Urine 1.032 (1.001-1.035); Urobilinogen,Urine <2.0 mg/dL (<2.0)
[2021-10-11] MEDS ORDERED: FUROSEMIDE 20 MG TAB PO SCH (07:00)
--- NOTE | 2021-10-11 08:26 | P.CRDCN ---
History of Present Illness History of present illness: 66-year-old lady with morbid obesity who suffered from covid infection in August presented to her primary care physician with symptoms of shortness of breath and leg edema. She was on Lasix the Lasix dose had been increased in spite of that she had symptoms came to the emergency room where she underwent testing for Cordarone of biters and is still positive. She denies any chest pain PND or orthopnea There is no prior history of coronary artery disease or congestive heart failure There is no prior history of valvular heart disease She was seen in our office in 2018 and had a fairly benign workup at that time On this presentation her d-dimer was elevated she went on to have a computed tomography scan of the chest that is negative for pulmonary embolism Hemoglobin is normal EKG does not reveal ischemic changes Cardiac enzymes have been negative Patient clinical presentation is suggestive of congestive heart failure probably diastolic I will obtain a 2-D echo to assess her LV function Treat her with intravenous diuretics beta blockers and mercedes inhibitors Constitutional: Denies chills. Denies fever. Eyes: Denies blurred vision. Denies pain. Ears, nose, mouth and throat: Denies headache. Denies sore throat. Cardiovascular: Denies chest pain. Significant for shortness of breath and leg edema Respiratory: Denies cough. Gastrointestinal: Denies abdominal pain. Denies diarrhea. Denies nausea. Denies vomiting. Musculoskeletal: Denies myalgias. Integumentary: Denies pruritus. Denies rash. Neurological: Denies numbness. Denies weakness. Psychiatric: Denies anxiety. Denies depression. Endocrine: Denies fatigue. Denies weight change. Genitourinary: Denies burning, hematuria, frequency of urination. Hematological: No anemia or excess bleeding. General: The patient is awake and alert, in no distress, and does not appear acutely ill. Skin: Skin is warm and dry and no rashes or lesions are noted. Eye: Pupils are equal, round and reactive to light, extra-ocular movements are intact; there is normal conjunctiva bilaterally. Ears, nose, mouth and throat: There are moist mucous membranes and no oral lesions. Neck: The neck is supple, there is no tenderness or JVD. Cardiovascular: There is a regular rate and rhythm. No murmur, rub or gallop is appreciated. Respiratory: Lungs are clear to auscultation, respirations are non-labored, breath sounds are equal. Gastrointestinal: Soft, non-distended, non-tender abdomen without masses or organomegaly noted. There is no rebound or guarding present. Bowel sounds are unremarkable. Back: There is no tenderness to palpation in the midline. There is no obvious deformity. Musculoskeletal: Normal ROM, no tenderness, T. There is no calf tenderness or swelling. Extremities: 1+ bilateral edema Vascular: Femoral pulse is normal. Posterior tibial pulses are normal .Dorsalis pedis is palpable. Neurological: CN II-XII intact. There are no obvious motor or sensory deficits. Speech is normal. Psychiatric: Cooperative, appropriate mood & affect, normal judgment. Assessment and plan: Shortness of breath and leg edema probably secondary to congestive heart failure could be diastolic Recent coronavirus infection Elevated d-dimer with negative CT chest I will treat the patient with intravenous diuretics obtain a 2-D echo beta blockers and mercedes inhibitors Past Medical History Past Medical History: COPD, GERD/Reflux, Thyroid Disorder Additional Past Medical History / Comment(s): hiatal hernia,hx hypoglycemia,rapid heart rate History of Any Multi-Drug Resistant Organisms: None Reported Past Surgical History: Appendectomy, Bariatric Surgery, Section, Cholecystectomy, Joint Replacement, Tonsillectomy Additional Past Surgical History / Comment(s): rt shoulder replacement,tali knee replaced x 2,gastric stapling 30 yrs ago-later reversed,rt carpel tunnel x 2, abdominal lysis of adhesions and failed rou-en-y 01/05/19 w/wesly Past Anesthesia/Blood Transfusion Reactions: No Reported Reaction Additional Past Anesthesia/Blood Transfusion Reaction / Comment(s): no hx blood transfusion Past Psychological History: No Psychological Hx Reported Smoking Status: Former smoker Past Alcohol Use History: None Reported Past Drug Use History: Marijuana - Past Family History Mother Family Medical History: No Reported History Father Family Medical History: Cancer, COPD Medications and Allergies Home Medications Medication Instructions Recorded Confirmed Type Cyclobenzaprine HCl 10 mg PO HS@219910/03/18 10/10/21 History DULoxetine HCL [Cymbalta] 30 mg PO BID@0700,1800 10/03/18 10/10/21 History Furosemide [Lasix] 40 mg PO HS@219910/03/18 10/10/21 History Lansoprazole 30 mg PO BID@0700,2200 10/03/18 10/10/21 History Levothyroxine Sodium 100 mcg PO DAILY@0700 10/03/18 10/10/21 History Losartan [Cozaar] 50 mg PO DAILY@0700 10/03/18 10/10/21 History Metoprolol Tartrate [Lopressor] 25 mg PO BID@0700,1500 10/03/18 10/10/21 History Potassium Chloride [Potassium 10 meq PO BID@0700,2200 10/03/18 10/10/21 History Chloride ER] Spironolactone [Aldactone] 25 mg PO DAILY@0700 10/03/18 10/10/21 History Albuterol Nebulized [Ventolin 2.5 mg INHALATION RT-Q6H PRN 10/10/21 10/10/21 History Nebulized] Cholecalciferol (Vitamin D3) 125 mcg PO DAILY@69910/10/21 10/10/21 History [Vitamin D3 (125 MCG = 5,000 IU)] Furosemide [Lasix] 60 mg PO DAILY@0700 10/10/21 10/10/21 History Gabapentin 600 mg PO TID@0700,1800,219910/10/21 10/10/21 History Grape Seed Extract 300mg 300 mg PO DAILY@69910/10/21 10/10/21 History Magnesium Oxide [Solorzano] 500 mg PO DAILY@69910/10/21 10/10/21 History Montelukast Sodium [Singulair] 10 mg PO HS@219910/10/21 10/10/21 History Turmeric Root Extract [Turmeric] 500 mg PO DAILY@0700 10/10/21 10/10/21 History levETIRAcetam [Keppra] 250 mg PO DAILY@1800 10/10/21 10/10/21 History levETIRAcetam [Keppra] 500 mg PO DIRECTED 10/10/21 10/10/21 History Allergies Allergy/AdvReac Type Severity Reaction Status Date / Time cephalexin [From Keflex] Allergy rash Verified 10/10/21 19:00 around mouth doxycycline Allergy Itching Verified 10/10/21 19:00 Physical Exam Vitals: Vital Signs Temp Pulse Pulse Resp BP BP Pulse Ox 10/11/21 07:00 97.5 F L 99 20 128/84 94 L 10/11/21 05:09 98.2 F 108 H 20 156/93 94 L 10/11/21 02:00 86 18 124/70 97 10/10/21 22:48 98.9 F 106 H 20 130/74 94 L 10/10/21 21:17 96 18 111/59 94 L 10/10/21 18:32 93 18 144/83 98 10/10/21 16:22 97.6 F 107 H 20 134/80 96 Intake and Output 10/10/21 10/11/21 10/11/21 22:59 06:59 14:59 Other: # Voids 3 Weight 154.221 kg Results 10/10/21 Unknown 10/10/21 Unknown Cardiac Enzymes 10/10/21 10/10/21 Range/Units Unknown Unknown AST 50 H (14-36) U/L Troponin I <0.012 (0.000-0.034) ng/mL Coagulation 10/10/21 Range/Units Unknown PT 10.1 (9.0-12.0) sec APTT 22.2 (22.0-30.0) sec CBC 10/10/21 Range/Units Unknown WBC 6.0 (3.8-10.6) k/uL RBC 4.17 (3.80-5.40) m/uL Hgb 11.7 (11.4-16.0) gm/dL Hct 36.6 (34.0-46.0) % Plt Count 251 (150-450) k/uL Comprehensive Metabolic Panel 10/10/21 Range/Units Unknown Sodium 135 L (137-145) mmol/L Potassium 5.3 H (3.5-5.1) mmol/L Chloride 100 (98-107) mmol/L Carbon Dioxide 28 (22-30) mmol/L BUN 12 (7-17) mg/dL Creatinine 0.83 (0.52-1.04) mg/dL Glucose 162 H (74-99) mg/dL Calcium 8.9 (8.4-10.2) mg/dL AST 50 H (14-36) U/L ALT 31 (4-34) U/L Alkaline Phosphatase 78 (38-126) U/L Total Protein 7.1 (6.3-8.2) g/dL Albumin 4.1 (3.5-5.0) g/dL Current Medications Generic Name Dose Route Start Last Admin Trade Name Mando PRN Reason Stop Dose Admin Acetaminophen 650 mg 10/10/21 21:15 10/11/21 05:13 Acetaminophen Tab 325 Mg Tab PO 650 mg Q6HR PRN Administration Mild Pain or Fever > 100.5 Albuterol Sulfate 2.5 mg 10/10/21 21:17 Albuterol Nebulized 2.5 Mg/3 Ml INHALATION RT-Q6H PRN Shortness Of Breath Cholecalciferol 125 mcg 10/11/21 07:00 Cholecalciferol 125 Mcg (5000 Iu) Tablet PO DAILY@0700 [facility] Cyclobenzaprine HCl 10 mg 10/10/21 22:00 10/10/21 22:35 Cyclobenzaprine 10 Mg Tab PO 10 mg HS@2200 [facility] Administration Duloxetine HCl 30 mg 10/11/21 07:00 Duloxetine Hcl 30 Mg Capsule.Dr PO BID@0700,1800 [facility] Furosemide 40 mg 10/11/21 09:00 Furosemide 10 Mg/Ml 4 Ml Vial IV Q12HR [facility] Gabapentin 600 mg 10/10/21 22:00 10/10/21 22:35 Gabapentin 300 Mg Cap PO 600 mg TID@0700,1800,2200 [facility] Administration Levetiracetam 500 mg 10/10/21 22:30 10/10/21 22:56 Levetiracetam 500 Mg Tab PO 500 mg DAILY@1800 [facility] Administration Levothyroxine Sodium 100 mcg 10/11/21 07:00 Levothyroxine 100 Mcg Tab PO DAILY@0700 [facility] Losartan Potassium 50 mg 10/11/21 07:00 Losartan 50 Mg Tab PO DAILY@0700 [facility] Magnesium Oxide 400 mg 10/11/21 07:00 Magnesium Oxide 400 Mg Tab PO DAILY@0700 [facility] Metoprolol Tartrate 25 mg 10/11/21 07:00 Metoprolol Tartrate 25 Mg Tab PO BID@0700,1500 [facility] Montelukast Sodium 10 mg 10/10/21 22:00 10/10/21 22:34 Montelukast 10 Mg Tab PO 10 mg HS@2200 [facility] Administration Naloxone HCl 0.2 mg 10/10/21 21:15 Naloxone 0.4 Mg/Ml 1 Ml Vial IV Q2M PRN Opioid Reversal Pantoprazole Sodium 40 mg 10/10/21 22:00 10/10/21 22:35 Pantoprazole 40 Mg Tablet PO 40 mg BID@0700,2200 [facility] Administration Spironolactone 25 mg 10/11/21 07:00 Spironolactone 25 Mg Tab PO DAILY@0700 [facility] Intake and Output 10/10/21 10/11/21 10/11/21 22:59 06:59 14:59 Other: # Voids 3 Weight 154.221 kg 10/10/21 Unknown 10/10/21 Unknown
[2021-10-11] MEDS: LEVOTHYROXINE 100 MCG TAB PO SCH (09:50)
[2021-10-11] MEDS: GABAPENTIN 300 MG CAP PO SCH ×3 (09:50→19:27)
[2021-10-11] MEDS: LOSARTAN 50 MG TAB PO SCH (09:51)
[2021-10-11] MEDS: MAGNESIUM OXIDE 400 MG TAB PO SCH (09:51)
[2021-10-11] MEDS: PANTOPRAZOLE 40 MG TABLET PO SCH ×2 (09:51→19:27)
[2021-10-11] MEDS: SPIRONOLACTONE 25 MG TAB PO SCH (09:51)
[2021-10-11] MEDS: METOPROLOL TARTRATE 25 MG TAB PO SCH ×2 (09:51→15:00)
[2021-10-11] MEDS: FUROSEMIDE 10 MG/ML 4 ML VIAL IV SCH ×2 (09:56→19:27)
--- NOTE | 2021-10-11 10:15 | ECHOF ---
Referral Reason:sob with exertion, elevated dimer MEASUREMENTS -------- HEIGHT: 157.5 cm WEIGHT: 154.2 kg BP: 156/93 IVSd: 1.4 cm (0.6 - 1.1) LVIDd: 3.9 cm (3.9 - 5.3) LVPWd: 1.6 cm (0.6 - 1.1) IVSs: 1.7 cm LVIDs: 2.7 cm LVPWs: 1.8 cm LAESV Index (A-L): 22.77 ml/m Ao Diam: 3.1 cm (2.0 - 3.7) AV Cusp: 1.8 cm (1.5 - 2.6) LA Diam: 3.5 cm (2.7 - 3.8) MV EXCURSION: 19.171 mm (> 18.000) MV EF SLOPE: 74 mm/s (70 - 150) EPSS: 0.4 cm MV E Jonathon: 0.87 m/s MV DecT: 168 ms MV A Jonathon: 1.21 m/s MV E/A Ratio: 0.72 RAP: 5.00 mmHg RVSP: 35.26 mmHg FINDINGS -------- Sinus rhythm. This was a technically difficult study with suboptimal parasternal views. The left ventricular size is normal. There is moderate concentric left ventricular hypertrophy. O verall left ventricular systolic function is normal with, an EF between 55 - 60 %. The RV was not well visualized. Normal LA size by volume 22+/-6 ml/m2. The right atrial size is normal. Interatrial and interventricular septum intact. There is no evidence of aortic regurgitation. There is no evidence of aortic stenosis. Mild mitral regurgitation is present. Mild tricuspid regurgitation present. There is mild pulmonary hypertension. The right ventricular systolic pressure, as measured by Doppler, is 35.26mmHg. There is no pulmonic regurgitation present. The aortic root size is normal. IVC Not well visulized. Echo free space represents a pericardial fat pad. There is no pericardial effusion. CONCLUSIONS -------- 1. The left ventricular size is normal. 2. There is moderate concentric left ventricular hypertrophy. 3. Overall left ventricular systolic function is normal with, an EF between 55 - 60 %. 4. Mild mitral regurgitation is present. 5. Mild tricuspid regurgitation present. 6. There is mild pulmonary hypertension. 7. The right ventricular systolic pressure, as measured by Doppler, is 35.26mmHg. PROFESSIONAL SKATEBOARDER: Stefanie Cano RDCS
[2021-10-11] MEDS: DULoxetine HCL 30 MG CAPSULE.DR PO SCH ×2 (10:32→17:32)
[2021-10-11] MEDS: CHOLECALCIFEROL 125 MCG (5000 IU) TABLET PO SCH (10:33)
[2021-10-11] MEDS ORDERED: ACETAMINOPHEN TAB 325 MG TAB PO PRN (13:08)
[2021-10-11] MEDS ORDERED: ONDANSETRON 4 MG/2 ML VIAL IVP PRN (13:08)
--- NOTE | 2021-10-11 13:08 | P.HPIM ---
History of Present Illness H&P Date: 10/11/21 Chief Complaint: Lower extremity swelling, shortness of breath History of present illness 66 years old female patient of Dr. Song with past medical history of COVID infection in August, COPD, GERD, hypothyroidism, history of hiatal hernia, morbid obesity status post of gastric stapling 30 years ago later reversed, failed Kvng-en-Y on December 2018 comes in with worsening swelling in the lower extremity for the past 1 month. Patient was tried on Lasix outpatient by primary care physician which were discontinued later for worsening kidney function. She has noticed increased swelling of lower extremity for the past 2 weeks associated with shortness of breath. She denies any orthopnea or PND. On evaluation in the ER patient was noted to have a WBC of 6 hemoglobin stable at 11 INR 0.9 d-dimer was elevated at 2.67 sodium 131, potassium 5.3 glucose 162 AST mildly elevated at 50 in the troponin 1 is negative UA was negative. COVID virus was positive. Patient was initially positive SEPTEMBER 03 and has recovered from COVID. CT angiogram was obtained due to elevated d- dimer, no pulmonary embolism was noted. Lungs are clear of consolidation or pleural effusion and minimal 8 elective sisters were noted. Heart size is normal. EKG is noted to be normal sinus rhythm no low voltage QRS so cardiology was consulted. Echocardiogram ordered. Patient initiated on Lasix 40 IV every 12. ROS Constitutional: Denies chills, Denies fever, Denies lethargy, Denies malaise, Denies poor appetite, Denies weakness, Denies weight loss Eyes: denies decreased vision, denies diplopia, denies discharge, denies pain Ears: deny: decreased hearing Ears, nose, mouth and throat: Denies dental pain, Denies headache, Denies nasal discharge, Denies nose pain Cardiovascular: Denies chest pain, endorses decreased exercise tolerance, ndorses edema, Denies high blood pressure, Denies irregular heart beat, Denies palpitations, Denies paroxysmal nocturnal dyspnea, Denies rapid heart beat, edorses shortness of breath Respiratory: Denies congestion, Denies cough, Denies cough with sputum, Denies dyspnea, Denies home oxygen, Denies wheezing Gastrointestinal: Denies abdominal pain, Denies change in bowel habits, Denies coffee ground emesis, Denies early satiety, Denies excessive gas, Denies heartburn, Denies hematemesis, Denies hematochezia, Denies loss of appetite, Denies nausea, Denies vomiting Genitourinary: Denies dysuria, Denies flank pain, Denies kidney stones, Denies menorrhagia, Denies urgency, Denies urinary frequency Musculoskeletal: Denies gait dysfunction, Denies limitation of motion, Denies morning stiffness, Denies muscle cramps, b/l lower ext edema Integumentary: Denies rash, Denies wounds, Denies brittle nails, Denies change in hair/nails, Denies darkening of skin Neurological: Denies balance difficulties, Denies change in speech, Denies double vision, Denies gait dysfunction, Denies loss of vision, Denies motor disturbance, Denies numbness, Denies paralysis, Denies paresthesias, Denies seizures Psychiatric: Denies anxiety, Denies depression Endocrine: Denies excessive sweating, Denies excessive thirst, Denies high blood sugars, Denies palpitations Hematologic/Lymphatic: Denies easy bruising, Denies lymphadenopathy Social history Quit smoking in 1991, smoked approximately 15 years around 1 day. No drinking alcohol denies any illicit drug use. Family history Mother has history of coronary artery disease, diabetes Father had stroke siblings with no significant medical problems 1 daughter with no medical problem Physical exam - Constitutional General appearance: cooperative, no acute distress, obese - EENT Eyes: anicteric sclerae, PERRLA, normal appearance ENT: hearing grossly normal - Neck Neck: no lymphadenopathy, normal ROM, no other, no rigidity, no stridor, no thyromegaly - Respiratory Respiratory: bilateral: CTA, negative: diminished, dullness, rales, rhonchi - Cardiovascular Rhythm: regular Heart sounds: normal: S1, S2 Abnormal Heart Sounds: no systolic murmur, no diastolic murmur, no rub, no S3 Gallop, no S4 Gallop, no click, no other - Gastrointestinal General gastrointestinal: normal bowel sounds, soft nontender - Integumentary IntegumentaBilateral lower extremity edema with chronic dermatitis - Neurologic Neurologic:Motor or sensory deficit - Musculoskeletal Musculoskeletal: gait normal, strength equal bilaterally - Psychiatric Psychiatric: A&O x's 3, appropriate affect Assessment and plan #1 acute shortness of breath associated with bilateral lower extremity edema likely acute diastolic congestive heart failure echocardiogram ordered. Monitor input and output. Daily weights. Cardiology consulted. Continue Lasix at 40 IV twice a day monitor CMP for kidney dysfunction. Continue losartan 50 mg by mouth daily, continue Aldactone 25 mg by mouth daily. Continue Lopressor 25 twice a day #2 COPD, not in exacerbation continue DuoNeb as needed for shortness of breath. No wheezing on exam. #3 hypothyroidism on 100 g by mouth daily #4 GERD on lansoprazole 30 twice a day started on pantoprazole 40 mg twice a day #5 seizure continue Keppra 500. By mouth daily #6 history of morbid obesity status post Kvng-en-Y December [address] Tinajero #7 depression/anxiety #8 DVT prophylaxis with heparin every 12 CODE STATUS full code Past Medical History Past Medical History: COPD, GERD/Reflux, Thyroid Disorder Additional Past Medical History / Comment(s): hiatal hernia,hx hypoglycemia,rapid heart rate History of Any Multi-Drug Resistant Organisms: None Reported Past Surgical History: Appendectomy, Bariatric Surgery, Section, Cholecystectomy, Joint Replacement, Tonsillectomy Additional Past Surgical History / Comment(s): rt shoulder replacement,tali knee replaced x 2,gastric stapling 30 yrs ago-later reversed,rt carpel tunnel x 2, abdominal lysis of adhesions and failed rou-en-y 01/05/19 w/wesly Past Anesthesia/Blood Transfusion Reactions: No Reported Reaction Additional Past Anesthesia/Blood Transfusion Reaction / Comment(s): no hx blood transfusion Past Psychological History: No Psychological Hx Reported Smoking Status: Former smoker Past Alcohol Use History: None Reported Past Drug Use History: Marijuana - Past Family History Mother Family Medical History: No Reported History Father Family Medical History: Cancer, COPD Medications and Allergies Home Medications Medication Instructions Recorded Confirmed Type Cyclobenzaprine HCl 10 mg PO HS@219910/03/18 10/10/21 History DULoxetine HCL [Cymbalta] 30 mg PO BID@0700,1800 10/03/18 10/10/21 History Furosemide [Lasix] 40 mg PO HS@219910/03/18 10/10/21 History Lansoprazole 30 mg PO BID@0700,2200 10/03/18 10/10/21 History Levothyroxine Sodium 100 mcg PO DAILY@0700 10/03/18 10/10/21 History Losartan [Cozaar] 50 mg PO DAILY@0700 10/03/18 10/10/21 History Metoprolol Tartrate [Lopressor] 25 mg PO BID@0700,1500 10/03/18 10/10/21 History Potassium Chloride [Potassium 10 meq PO BID@0700,2200 10/03/18 10/10/21 History Chloride ER] Spironolactone [Aldactone] 25 mg PO DAILY@0700 10/03/18 10/10/21 History Albuterol Nebulized [Ventolin 2.5 mg INHALATION RT-Q6H PRN 10/10/21 10/10/21 History Nebulized] Cholecalciferol (Vitamin D3) 125 mcg PO DAILY@00 10/10/21 10/10/21 History [Vitamin D3 (125 MCG = 5,000 IU)] Furosemide [Lasix] 60 mg PO DAILY@00 10/10/21 10/10/21 History Gabapentin 600 mg PO TID@0700,1800,219910/10/21 10/10/21 History Grape Seed Extract 300mg 300 mg PO DAILY@0710/10/21 10/10/21 History Magnesium Oxide [Solorzano] 500 mg PO DAILY@0700 10/10/21 10/10/21 History Montelukast Sodium [Singulair] 10 mg PO HS@219910/10/21 10/10/21 History Turmeric Root Extract [Turmeric] 500 mg PO DAILY@0700 10/10/21 10/10/21 History levETIRAcetam [Keppra] 250 mg PO DAILY@1800 10/10/21 10/10/21 History levETIRAcetam [Keppra] 500 mg PO DIRECTED 10/10/21 10/10/21 History Allergies Allergy/AdvReac Type Severity Reaction Status Date / Time cephalexin [From Keflex] Allergy rash Verified 10/10/21 19:00 around mouth doxycycline Allergy Itching Verified 10/10/21 19:00 Physical Exam Vitals: Vital Signs Temp Pulse Pulse Resp BP BP Pulse Ox 10/11/21 07:00 97.5 F L 99 20 128/84 94 L 10/11/21 05:09 98.2 F 108 H 20 156/93 94 L 10/11/21 02:00 86 18 124/70 97 10/10/21 22:48 98.9 F 106 H 20 130/74 94 L 10/10/21 21:17 96 18 111/59 94 L 10/10/21 18:32 93 18 144/83 98 10/10/21 16:22 97.6 F 107 H 20 134/80 96 Intake and Output 10/10/21 10/11/21 10/11/21 22:59 06:59 14:59 Intake Total 120 Balance 120 Intake: Oral 120 Other: Voiding Method Toilet # Voids 3 Weight 154.221 kg 154.2 kg Results CBC & Chem 7: 10/10/21 Unknown 10/10/21 Unknown Labs: Abnormal Lab Results - Last 24 Hours (Table) 10/10/21 10/10/21 10/10/21 Range/Units 18:28 21:05 Unknown RDW 15.8 H (11.5-15.5) % D-Dimer 2.67 H (<0.60) mg/L FEU Sodium (137-145) mmol/L Potassium (3.5-5.1) mmol/L Glucose (74-99) mg/dL AST (14-36) U/L Coronavirus (PCR) Detected A (Not Detectd) 10/10/21 Range/Units Unknown RDW (11.5-15.5) % D-Dimer (<0.60) mg/L FEU Sodium 135 L (137-145) mmol/L Potassium 5.3 H (3.5-5.1) mmol/L Glucose 162 H (74-99) mg/dL AST 50 H (14-36) U/L Coronavirus (PCR) (Not Detectd) Thrombosis Risk Factor Assmnt - Choose All That Apply Any of the Below Risk Factors Present?: Yes Each Factor Represents 1 point: Obesity (BMI >25), Serious lung disease incl. pneumonia (< 1month), Swollen legs (current) Other Risk Factors: Yes Each Risk Factor Represents 2 Points: Age 61-74 years Thrombosis Risk Factor Assessment Total Risk Factor Score: 5 Thrombosis Risk Factor Assessment Level: High Risk
[2021-10-11] MEDS: ALBUTEROL HFA INHALER INHALATION PRN ×2 (15:47→19:42)
[2021-10-11 16:57] LABS: Glucose,Whole Blood 144 mg/dL (75-99)
[2021-10-11] MEDS: levETIRAcetam 500 MG TAB PO SCH (17:33)
[2021-10-11] MEDS ORDERED: levETIRAcetam 250 MG TAB PO SCH (18:00)
[2021-10-11] MEDS: HEPARIN SODIUM,PORCINE/PF 5,000 UNIT/0.5 ML SYRINGE SQ SCH (19:27)
[2021-10-11] MEDS: guaiFENesin 600 MG TABLET.ER PO SCH (19:27)
[2021-10-11] MEDS: MONTELUKAST 10 MG TAB PO SCH (19:27)
[2021-10-11] MEDS: CYCLOBENZAPRINE 10 MG TAB PO SCH (19:27)
[2021-10-11 20:47] LABS: Glucose,Whole Blood 176 mg/dL (75-99)
[2021-10-12 07:46] LABS: Glucose,Whole Blood 138 mg/dL (75-99)
[2021-10-12 07:58] LABS: African American GFR (CKD) 81 (>60 ml/min/1.73 sqM); Anion Gap 7 mmol/L; Blood Urea Nitrogen 15 mg/dL (7-17); Calcium 9.2 mg/dL (8.4-10.2); Carbon Dioxide 30 mmol/L (22-30); Chloride 100 mmol/L (98-107); Glucose 136 mg/dL (74-99); Non-African American GFR(CKD) 70 (>60 ml/min/1.73 sqM); Sodium 137 mmol/L (137-145)
[2021-10-12 08:05] LABS: Magnesium 2.3 mg/dL (1.6-2.3); Potassium 4.2 mmol/L (3.5-5.1)
[2021-10-12 08:08] VITALS: RESP 16
[2021-10-12] MEDS: SPIRONOLACTONE 25 MG TAB PO SCH (08:19)
[2021-10-12] MEDS: CHOLECALCIFEROL 125 MCG (5000 IU) TABLET PO SCH (08:19)
[2021-10-12] MEDS: MAGNESIUM OXIDE 400 MG TAB PO SCH (08:19)
[2021-10-12] MEDS: GABAPENTIN 300 MG CAP PO SCH ×3 (08:19→21:09)
[2021-10-12] MEDS: LEVOTHYROXINE 100 MCG TAB PO SCH (08:19)
[2021-10-12] MEDS: DULoxetine HCL 30 MG CAPSULE.DR PO SCH ×2 (08:20→17:08)
[2021-10-12] MEDS: METOPROLOL TARTRATE 25 MG TAB PO SCH ×2 (08:20→17:08)
[2021-10-12] MEDS: guaiFENesin 600 MG TABLET.ER PO SCH ×2 (08:20→21:09)
[2021-10-12] MEDS: PANTOPRAZOLE 40 MG TABLET PO SCH ×2 (08:20→21:10)
[2021-10-12] MEDS: LOSARTAN 50 MG TAB PO SCH (08:20)
[2021-10-12] MEDS: FUROSEMIDE 10 MG/ML 4 ML VIAL IV SCH ×2 (08:20→21:09)
[2021-10-12] MEDS: ALBUTEROL HFA INHALER INHALATION PRN ×3 (08:39→20:23)
[2021-10-12] MEDS: HEPARIN SODIUM,PORCINE/PF 5,000 UNIT/0.5 ML SYRINGE SQ SCH ×2 (08:52→21:09)
--- NOTE | 2021-10-12 11:26 | P.PN ---
Subjective Progress Note Date: 10/12/21 History of present illness 66 years old female patient of Dr. Song with past medical history of COVID infection in August, COPD, GERD, hypothyroidism, history of hiatal h ernia, morbid obesity status post of gastric stapling 30 years ago later reversed, failed Kvng-en-Y on December 2018 comes in with worsening swelling in the lower extremity for the past 1 month. Patient was tried on Lasix outpatient by primary care physician which were discontinued later for worsening kidney function. She has noticed increased swelling of lower extremity for the past 2 weeks associated with shortness of breath. She denies any orthopnea or PND. On evaluation in the ER patient was noted to have a WBC of 6 hemoglobin stable at 11 INR 0.9 d-dimer was elevated at 2.67 sodium 131, potassium 5.3 glucose 162 AST mildly elevated at 50 in the troponin 1 is negative UA was n egative. COVID virus was positive. Patient was initially positive SEPTEMBER 03 and has recovered from COVID. CT angiogram was obtained due to elevated d- dimer, no pulmonary embolism was noted. Lungs are clear of consolidation or pleural effusion and minimal 8 elective sisters were noted. Heart size is normal. EKG is noted to be normal sinus rhythm no low voltage QRS so cardiology was consulted. Echocardiogram ordered. Patient initiated on Lasix 40 IV every 12. 2/3: Pulse ox is 94-96% on room air, patient's been afebrile, heart rate 79, blood pressure 101/65. Repeat bmp normal. Blood sugars are running between 138-176. Patient denies having any chest pain. Weight is down 2 kg. Patient has been seen by cardiology with her conditions to continue Lasix 40 mg IV every 12 hours, losartan, Lopressor and Aldactone. Lower extremity edeema is improving, breathing is improving. Echocardiogram reveals EF of 55-60% with moderate concentric left hypertrophy, mild mitral regurgitation, mild tricuspid regurgitation, mild pulmonary hypertension, RVSP 35.26 mmHg ROS Constitutional: Denies chills, Denies fever, Denies lethargy, Denies malaise, Denies poor appetite, Denies weakness, Denies weight loss Eyes: denies decreased vision, denies diplopia, denies discharge, denies pain Ears: deny: decreased hearing Ears, nose, mouth and throat: Denies dental pain, Denies headache, Denies nasal discharge, Denies nose pain Cardiovascular: Denies chest pain, endorses decreased exercise tolerance, ndorses edema-improving, Denies high blood pressure, Denies irregular heart beat, Denies palpitations, Denies paroxysmal nocturnal dyspnea, Denies rapid heart beat, edorses shortness of breath-improving Respiratory: Denies congestion, Denies cough, Denies cough with sputum, Denies dyspnea, Denies home oxygen, Denies wheezing Gastrointestinal: Denies abdominal pain, Denies change in bowel habits, Denies coffee ground emesis, Denies early satiety, Denies excessive gas, Denies heartburn, Denies hematemesis, Denies hematochezia, Denies loss of appetite, Denies nausea, Denies vomiting Genitourinary: Denies dysuria, Denies flank pain, Denies kidney stones, Denies menorrhagia, Denies urgency, Denies urinary frequency Musculoskeletal: Denies gait dysfunction, Denies limitation of motion, Denies morning stiffness, Denies muscle cramps, b/l lower ext edema Integumentary: Denies rash, Denies wounds, Denies brittle nails, Denies change in hair/nails, Denies darkening of skin Neurological: Denies balance difficulties, Denies change in speech, Denies double vision, Denies gait dysfunction, Denies loss of vision, Denies motor disturbance, Denies numbness, Denies paralysis, Denies paresthesias, Denies seizures Psychiatric: Denies anxiety, Denies depression Endocrine: Denies excessive sweating, Denies excessive thirst, Denies high blood sugars, Denies palpitations Hematologic/Lymphatic: Denies easy bruising, Denies lymphadenopathy Physical exam - Constitutional General appearance: cooperative, no acute distress, obese - EENT Eyes: anicteric sclerae, PERRLA, normal appearance ENT: hearing grossly normal - Neck Neck: no lymphadenopathy, normal ROM, no other, no rigidity, no stridor, no thyromegaly - Respiratory Respiratory: bilateral: CTA, negative: diminished, dullness, rales, rhonchi - Cardiovascular Rhythm: regular Heart sounds: normal: S1, S2 Abnormal Heart Sounds: no systolic murmur, no diastolic murmur, no rub, no S3 Gallop, no S4 Gallop, no click, no other - Gastrointestinal General gastrointestinal: normal bowel sounds, soft nontender - Integumentary Integumenta Bilateral lower extremity edema with chronic dermatitis - Neurologic Neurologic:Motor or sensory deficit - Musculoskeletal Musculoskeletal: gait normal, strength equal bilaterally - Psychiatric Psychiatric: A&O x's 3, appropriate affect Assessment and plan #1 acute shortness of breath associated with bilateral lower extremity edema likely acute diastolic congestive heart failure echocardiogram ordered. Monitor input and output. Daily weights. Cardiology consulted. Continue Lasix at 40 IV twice a day to continue today and change to PO tomorrow,, monitor CMP for kidney dysfunction. Continue losartan 50 mg by mouth daily, continue Aldactone 25 mg by mouth daily. Continue Lopressor 25 twice a day #2 COPD, not in exacerbation continue DuoNeb as needed for shortness of breath. No wheezing on exam. #3 hypothyroidism on 100 g by mouth daily #4 GERD on lansoprazole 30 twice a day started on pantoprazole 40 mg twice a day #5 seizure continue Keppra 500. By mouth daily #6 history of morbid obesity status post Kvng-en-Y December [address] which failed[address] Tinajero #7 depression/anxiety #8 DVT prophylaxis with heparin every 12 CODE STATUS full code Discharge Plan Home on Saturday Impression and plan of care have been directed as dictated by the signing p rodolfo. Cecille Vaz nurse practitioner acting as scribe for signing physician. Objective - Vital Signs Vital signs: Vital Signs Temp 97.5 F L 10/12/21 07:00 Pulse 79 10/12/21 07:00 Resp 16 10/12/21 07:00 BP 101/65 10/12/21 07:00 Pulse Ox 96 10/12/21 07:00 Intake & Output 10/11/21 10/12/21 10/12/21 18:59 06:59 18:59 Intake Total 940 Output Total 1100 1050 Balance -160 -1050 Weight 154.2 kg 152 kg Intake: Oral 940 Output: Urine 1100 1050 Other: Voiding Method Toilet Toilet # Voids 1 - Labs CBC & Chem 7: 10/10/21 Unknown 10/12/21 06:24 Labs: Abnormal Lab Results - Last 24 Hours (Table) 10/11/21 10/11/21 10/12/21 Range/Units 16:51 20:45 06:24 Glucose 136 H (74-99) mg/dL POC Glucose (mg/dL) 144 H 176 H (75-99) mg/dL 10/12/21 Range/Units 07:45 Glucose (74-99) mg/dL POC Glucose (mg/dL) 138 H (75-99) mg/dL
--- NOTE | 2021-10-12 12:17 | P.PN ---
Subjective This is a 66-year-old female past medical history of COPD, hypertension, chronic bilateral lower extremity edema, GERD, hypothyroidism, hiatal hernia, morbid obesity. 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 Ohara in the office years ago.We have been consulted for shortness of breath. Patient presents emergency department with complaints of shortness of breath and worsening bilateral lower extremity edema. She also endorses lower extremity pain with palpation. She was started on IV Lasix. She was also found to be C OVID-19 positive. On presentation her d-dimer was elevated and she underwent a computed tomography scan of the chest which was negative for pulmonary embolism. Echocardiogram revealed EF 5560 percent, mild mitral regurgitation, mild tricuspid regurgitation, mild pulmonary hypertension with an RVSP of 35 mmHg. Patient seen and examined at bedside, no acute distress. Her lower extremity edema has improved. She denies any shortness of breath or chest pain. Patient with 2150mL urine output over the past 24 hours, weight has decreased. She is currently maintained on IV Lasix 40 mg twice a day, losartan 50 mg daily, Lopressor 25 mg twice a day, spironolactone 25 mg daily. Lasix reviewed, sodium 137, potassium 4.2, BUN 15, serum creatinine 0.8, magnesium 2.3 GENERAL: Well-appearing, well-nourished and in no acute distress. NECK: Supple without JVD or thyromegaly. LUNGS: Breath sounds clear to auscultation bilaterally. Respiration equal and unlabored. No wheezes, rales or rhonchi. HEART: Regular rate and rhythm without murmurs, rubs or gallops. S1 and S2 heard. EXTREMITIES: Normal range of motion, 1+ bilateral lower extremity edema. Some discoloration/redness bilateral lower shins. Pain with palpation to bilateral lower extremities. Bilateral toe pain. No clubbing or cyanosis. ASSESSMENT Symptoms of shortness of breath and lower extremity edema, acute on chronic heart failure with preserved ejection fraction, also possible venous insufficiency component Covid-19 infection COPD Hypertension GERD Hypothyroidism PLAN Continue IV Lasix 40mg BID for additional 24 hours Monitor I/Os renal function and electrolytes Further recommendations based on clinical course Nurse Practitioner note has been reviewed, I agree with a documented findings and plan of care. Patient was seen and examined. Objective - Vital Signs Vital signs: Vital Signs Temp 97.5 F L 10/12/21 07:00 Pulse 79 10/12/21 07:00 Resp 16 10/12/21 07:00 BP 101/65 10/12/21 07:00 Pulse Ox 96 10/12/21 07:00 Intake & Output 10/11/21 10/12/21 10/12/21 18:59 06:59 18:59 Intake Total 940 Output Total 1100 1050 Balance -160 -1050 Weight 154.2 kg 152 kg Intake: Oral 940 Output: Urine 1100 1050 Other: Voiding Method Toilet Toilet # Voids 1 - Labs CBC & Chem 7: 10/10/21 Unknown 10/12/21 06:24 Labs: Abnormal Lab Results - Last 24 Hours (Table) 10/11/21 10/11/21 10/12/21 Range/Units 16:51 20:45 06:24 Glucose 136 H (74-99) mg/dL POC Glucose (mg/dL) 144 H 176 H (75-99) mg/dL 10/12/21 Range/Units 07:45 Glucose (74-99) mg/dL POC Glucose (mg/dL) 138 H (75-99) mg/dL
[2021-10-12] MEDS: levETIRAcetam 500 MG TAB PO SCH (17:08)
[2021-10-12] MEDS: CYCLOBENZAPRINE 10 MG TAB PO SCH (21:09)
[2021-10-12] MEDS: MONTELUKAST 10 MG TAB PO SCH (21:10)
[2021-10-13 08:00] LABS: African American GFR (CKD) 65 (>60 ml/min/1.73 sqM); Anion Gap 6 mmol/L; Blood Urea Nitrogen 20 mg/dL (7-17); Calcium 9.2 mg/dL (8.4-10.2); Carbon Dioxide 32 mmol/L (22-30); Chloride 99 mmol/L (98-107); Glucose 136 mg/dL (74-99); Non-African American GFR(CKD) 56 (>60 ml/min/1.73 sqM); Potassium 3.9 mmol/L (3.5-5.1); Sodium 137 mmol/L (137-145)
[2021-10-13] MEDS: ALBUTEROL HFA INHALER INHALATION PRN (08:06)
[2021-10-13 08:32] VITALS: BP 107/67; PULSE 94; TEMP 97.6
[2021-10-13] MEDS: GABAPENTIN 300 MG CAP PO SCH (08:35)
[2021-10-13] MEDS: guaiFENesin 600 MG TABLET.ER PO SCH (08:35)
[2021-10-13] MEDS: HEPARIN SODIUM,PORCINE/PF 5,000 UNIT/0.5 ML SYRINGE SQ SCH (08:35)
[2021-10-13] MEDS: MAGNESIUM OXIDE 400 MG TAB PO SCH (08:39)
[2021-10-13] MEDS: DULoxetine HCL 30 MG CAPSULE.DR PO SCH (08:39)
[2021-10-13] MEDS: LEVOTHYROXINE 100 MCG TAB PO SCH (08:39)
[2021-10-13] MEDS: LOSARTAN 50 MG TAB PO SCH ×2 (08:40→08:41)
[2021-10-13] MEDS: PANTOPRAZOLE 40 MG TABLET PO SCH (08:40)
[2021-10-13] MEDS: CHOLECALCIFEROL 125 MCG (5000 IU) TABLET PO SCH (08:41)
[2021-10-13] MEDS: SPIRONOLACTONE 25 MG TAB PO SCH (08:41)
[2021-10-13] MEDS: METOPROLOL TARTRATE 25 MG TAB PO SCH (08:41)
[2021-10-13] MEDS ORDERED: FUROSEMIDE 40 MG TAB PO SCH (09:00)
--- NOTE | 2021-10-13 09:27 | P.PN ---
Subjective This is a 66-year-old female past medical history of COPD, hypertension, chronic bilateral lower extremity edema, GERD, hypothyroidism, hiatal hernia, morbid obesity. 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 Ohara in the office years ago.We have been consulted for shortness of breath. Patient presents emergency department with complaints of shortness of breath and worsening bilateral lower extremity edema. She also endorses lower extremity pain with palpation. She was started on IV Lasix. She was also found to be C OVID-19 positive. On presentation her d-dimer was elevated and she underwent a computed tomography scan of the chest which was negative for pulmonary embolism. Echocardiogram revealed EF 5560 percent, mild mitral regurgitation, mild tricuspid regurgitation, mild pulmonary hypertension with an RVSP of 35 mmHg. Patient seen and examined at bedside, no acute distress. Her lower extremity edema has improved. She denies any shortness of breath or chest pain. Patient with 2000mL urine output over the past 24 hours, weight has decreased. She is currently maintained on IV Lasix 40 mg twice a day, losartan 50 mg daily, Lopressor 25 mg twice a day, spironolactone 25 mg daily. Lasix reviewed, sodium 137, potassium 3.9, BUN 20, serum creatinine 1.0 GENERAL: Well-appearing, well-nourished and in no acute distress. NECK: Supple without JVD or thyromegaly. LUNGS: Breath sounds clear to auscultation bilaterally. Respiration equal and unlabored. No wheezes, rales or rhonchi. HEART: Regular rate and rhythm without murmurs, rubs or gallops. S1 and S2 heard. EXTREMITIES: Normal range of motion, 1+ bilateral lower extremity edema. Some discoloration/redness bilateral lower shins. Pain with palpation to bilateral lower extremities. Bilateral toe pain. No clubbing or cyanosis. ASSESSMENT Symptoms of shortness of breath and lower extremity edema, acute on chronic heart failure with preserved ejection fraction, also possible venous insufficiency component Covid-19 infection COPD Hypertension GERD Hypothyroidism PLAN Recommend transition to PO Lasix 40mg BID Continue losartan 50 mg daily, metoprolol tartrate 25 mg twice a day, spironolactone 25 mg daily From a cardiology perspective, patient stable to be discharged home today Follow up with Dr. Sahu in one week. Nurse Practitioner note has been reviewed, I agree with a documented findings and plan of care. Patient was seen and examined. Objective - Vital Signs Vital signs: Vital Signs Temp 97.6 F 10/13/21 07:00 Pulse 94 10/13/21 07:00 Resp 16 10/13/21 07:00 BP 107/67 10/13/21 07:00 Pulse Ox 92 L 10/13/21 07:00 Intake & Output 10/12/21 10/13/21 10/13/21 18:59 06:59 18:59 Intake Total 118 Output Total 1000 1000 Balance -1000 -1000 118 Weight 151.4 kg Intake: Oral 118 Output: Urine 1000 1000 Other: Voiding Method Toilet # Voids 400 - Labs CBC & Chem 7: 10/10/21 Unknown 10/13/21 06:54 Labs: Abnormal Lab Results - Last 24 Hours (Table) 10/13/21 Range/Units 06:54 Carbon Dioxide 32 H (22-30) mmol/L BUN 20 H (7-17) mg/dL Creatinine 1.05 H (0.52-1.04) mg/dL Glucose 136 H (74-99) mg/dL
--- NOTE | 2021-10-13 09:58 | P.DS ---
Providers Date of admission: 10/12/21 10:06 Expected date of discharge: 10/13/21 Attending physician: Carol Dias MD Consults: 10/10/21 21:16 Consult Physician Routine Consulting Provider: Meng Ohara Consult Reason/Comments: Shortness of breath with exertion, elevated d-dimer Do you want consulting provider notified?: Yes Primary care physician: Jeff Song [facility] Course: History of present illness 66 years old female patient of Dr. Song with past medical history of COVID infection in August, COPD, GERD, hypothyroidism, history of hiatal hernia, morbid obesity status post of gastric stapling 30 years ago later reversed, failed Kvng-en-Y on December 2018 comes in with worsening swelling in the lower extremity for the past 1 month. Patient was tried on Lasix outpatient by primary care physician which were discontinued later for worsening kidney function. She has noticed increased swelling of lower extremity for the past 2 weeks associated with shortness of breath. She denies any orthopnea or PND. On evaluation in the ER patient was noted to have a WBC of 6 hemoglobin stable at 11 INR 0.9 d-dimer was elevated at 2.67 sodium 131, potassium 5.3 glucose 162 AST mildly elevated at 50 in the fifth 31 troponin 1 is negative UA was negative. COVID virus was positive. Patient was initially positive SEPTEMBER 03 and has recovered from COVID. CT angiogram was obtained due to elevated d- dimer, no pulmonary embolism was noted. Lungs are clear of consolidation or pleural effusion and minimal 8 elective sisters were noted. Heart size is normal. EKG is noted to be normal sinus rhythm no low voltage QRS so cardiology was consulted. Echocardiogram ordered. Patient initiated on Lasix 40 IV every 12. 2/3: Pulse ox is 94-96% on room air, patient's been afebrile, heart rate 79, blood pressure 101/65. Repeat bmp normal. Blood sugars are running between 138-176. Patient denies having any chest pain. Weight is down 2 kg. Patient has been seen by cardiology with her conditions to continue Lasix 40 mg IV every 12 hours, losartan, Lopressor and Aldactone. Lower extremity edeema is improving, breathing is improving. Echocardiogram reveals EF of 55-60% with moderate concentric left hypertrophy, mild mitral regurgitation, mild tricuspid regurgitation, mild pulmonary hypertension, RVSP 35.26 mmHg 2/4: Patient is afebrile, heart rate 85, blood pressure 130/74, pulse ox 94% on room air. Repeat blood work reveals sodium 137, potassium 3.9, chloride 99, CO2 32, BUN 20 creatinine 1.05. Blood sugar 136. Shortness of breath has improved as well as lower extremity edema. We'll plan to increase home Lasix dose for 1 week and then resume previous dosing. Patient will be discharged home today in stable condition. Discharge Diagnoses #1 acute shortness of breath associated with bilateral lower extremity edema likely acute diastolic heart failure. #2 COPD, not in exacerbation. #3 hypothyroidism #4 GERD #5 seizure #6 history of morbid obesity status post Kvng-en-Y December 2018 which failed. #7 recurrent depression, generalized anxiety disorder Discharge Plan Home on Saturday Greater than 35 minutes was utilized and coordinating patient's discharge. Impression and plan of care have been directed as dictated by the signing physician. Cecille Vaz nurse practitioner acting as scribe for signing physician. Patient Condition at Discharge: Stable Plan - Discharge Summary Discharge Rx Participant: No New Discharge Prescriptions: New guaiFENesin [Mucinex] 600 mg PO Q12HR tablet Continue Spironolactone [Aldactone] 25 mg PO DAILY@0700 Potassium Chloride [Potassium Chloride ER] 10 meq PO BID@0700,2200 Metoprolol Tartrate [Lopressor] 25 mg PO BID@0700,1500 Lansoprazole 30 mg PO BID@0700,2200 Losartan [Cozaar] 50 mg PO DAILY@0700 Levothyroxine Sodium 100 mcg PO DAILY@0700 Furosemide [Lasix] 40 mg PO HS@2200 DULoxetine HCL [Cymbalta] 30 mg PO BID@0700,1800 Cyclobenzaprine HCl 10 mg PO HS@2200 Turmeric Root Extract [Turmeric] 500 mg PO DAILY@0700 Gabapentin 600 mg PO TID@0700,1800,2200 Cholecalciferol (Vitamin D3) [Vitamin D3 (125 MCG = 5,000 IU)] 125 mcg PO DAILY@0700 Furosemide [Lasix] 60 mg PO DAILY@0700 #0 levETIRAcetam [Keppra] 500 mg PO DIRECTED levETIRAcetam [Keppra] 250 mg PO DAILY@1800 Magnesium Oxide [Solorzano] 500 mg PO DAILY@0700 Grape Seed Extract 300mg 300 mg PO DAILY@0700 Montelukast Sodium [Singulair] 10 mg PO HS@0 Albuterol Nebulized [Ventolin Nebulized] 2.5 mg INHALATION RT-Q6H PRN PRN Reason: Shortness Of Breath Discharge Medication List Cyclobenzaprine HCl 10 mg PO HS@219910/03/18 [History] DULoxetine HCL [Cymbalta] 30 mg PO BID@0700,1800 10/03/18 [History] Furosemide [Lasix] 40 mg PO HS@219910/03/18 [History] Lansoprazole 30 mg PO BID@0700,219910/03/18 [History] Levothyroxine Sodium 100 mcg PO DAILY@69910/03/18 [History] Losartan [Cozaar] 50 mg PO DAILY@69910/03/18 [History] Metoprolol Tartrate [Lopressor] 25 mg PO BID@0700,1500 10/03/18 [History] Potassium Chloride [Potassium Chloride ER] 10 meq PO BID@0700,219910/03/18 [History] Spironolactone [Aldactone] 25 mg PO DAILY@69910/03/18 [History] Albuterol Nebulized [Ventolin Nebulized] 2.5 mg INHALATION RT-Q6H PRN 10/10/21 [History] Cholecalciferol (Vitamin D3) [Vitamin D3 (125 MCG = 5,000 IU)] 125 mcg PO DAILY@0700 10/10/21 [History] Gabapentin 600 mg PO TID@0700,1800,219910/10/21 [History] Grape Seed Extract 300mg 300 mg PO DAILY@0710/10/21 [History] Magnesium Oxide [Solorzano] 500 mg PO DAILY@69910/10/21 [History] Montelukast Sodium [Singulair] 10 mg PO HS@219910/10/21 [History] Turmeric Root Extract [Turmeric] 500 mg PO DAILY@0710/10/21 [History] levETIRAcetam [Keppra] 250 mg PO DAILY@1800 10/10/21 [History] levETIRAcetam [Keppra] 500 mg PO DIRECTED 10/10/21 [History] Furosemide [Lasix] 60 mg PO DAILY@0700 #0 10/13/21 [Rx] guaiFENesin [Mucinex] 600 mg PO Q12HR tablet 10/13/21 [Rx] Follow up Appointment(s)/Referral(s): Jeff Song MD [Primary Care Provider] - 10/19/21 1:15 pm Stanley Sahu MD [STAFF PHYSICIAN] - 10/18/21 9:15 am Patient Instructions/Handouts: Shortness of Breath (DC) Discharge Disposition: HOME SELF-CARE
--- NOTE | 2021-10-13 11:42 | CDI ---
Documentation Clarification Form Date: 10/13/2021 11:29:37 AM From: Charmaine Hutton RN CCDS Admit Date: 10/12/2021 10:06:00 AM Patient Name: Ina Larkin Visit Number: [id number] Discharge Date: ATTENTION: The Clinical Documentation Specialists (CDI) and [facility] Coding Staff appreciate your assistance in clarifying documentation. Please respond to the clarification below the line at the bottom and electronically sign. The CDI & [facility] Coding staff will review the response and follow-up if needed. Please note: Queries are made part of the Legal Health Record. If you have any questions, please contact the author of this message via ITS. Dr. Carol Dias The COVID-19 test obtained on 10/10 was reported as Positive. History/Risk Factors: 66-year-old female presents to the ED with shortness of breath and bilateral lower extremity edema. Medical History: COVID 19 in Aug 2021; COPD and Rou-en-y sx. H&P, 10/11. Clinical Indicators: Admitted with Acute exacerbation of Diastolic CHF. CTA Chest 10/10: Minimal subsegmental atelectasis right lung base. LABS: 10/10 D-dimer 2.67, AST 50. DCS, 10/13: COVID virus was positive. Patient was initially positive SEPTEMBER 03 and has recovered from COVID.CT angiogram was obtained due to elevated d- dimer, no pulmonary embolism was noted. Lungs are clear of consolidation or pleural effusion. Treatment: 10/11 to 10/13 Vitamin D 3 125mcg PO Daily. Can you please clarify the positive COVID 19 test is? [ ] A current active infection [ ] History of recent infection [ X ] Other, please specify COVID 19 can stay positive for months after infection, not infectious as patient is not symptomatic ___ [ ] Unable to determine (Template Last Revised: November 2020) MTDD
== END 2021-10-13 11:55 | disposition home or self-care (01) | DRG 291 ==
LOC: EC 16:12 → 6NMEDSUR 21:15 → OBSVTOIN 10-12 10:06
PROVIDERS: ADMIT Internal Medicine; ATTEND Internal Medicine
DX: I11.0 Hypertensive heart disease with heart failure (principal); I50.33 Acute on chronic diastolic (congestive) heart failure; Z68.44 Body mass index [BMI] 60.0-69.9, adult; F33.9 Major depressive disorder, recurrent, unspecified; Z96.611 Presence of right artificial shoulder joint; Z96.653 Presence of artificial knee joint, bilateral; E03.9 Hypothyroidism, unspecified; R56.9 Unspecified convulsions; E66.01 Morbid (severe) obesity due to excess calories; F41.1 Generalized anxiety disorder; J44.9 Chronic obstructive pulmonary disease, unspecified; K21.9 Gastro-esophageal reflux disease without esophagitis; Z88.1 Allergy status to other antibiotic agents; Z88.3 Allergy status to other anti-infective agents; Z98.84 Bariatric surgery status; Z86.16 Personal history of COVID-19; Z79.890 Hormone replacement therapy; Z79.899 Other long term (current) drug therapy; Z98.890 Other specified postprocedural states; Z87.891 Personal history of nicotine dependence; Z82.3 Family history of stroke; Z82.49 Family history of ischemic heart disease and other diseases of the circulatory system; Z82.5 Family history of asthma and other chronic lower respiratory diseases; Z83.3 Family history of diabetes mellitus
CPT/HCPCS: 36415; 71046; 71275; 80048; 80053; 81003; 83735; 83880; 84484; 85025; 85379; 85610; 85730; 87635; 93005; 93306; 94640; 99285

== ENCOUNTER 2022-02-06 16:06 | Emergency (ER) | payer BC, MEDICARE ==
--- NOTE | 2022-02-06 21:22 | XR ---
EXAMINATION TYPE: XR tibia fibula LT, XR ankle complete LT DATE OF EXAM: 02/06/2022 8:49 PM INDICATION: Patient age:Female; 66 years old; Reason for study: cellulitis; COMPARISON: None TECHNIQUE: The left tibia/fibula was examined in AP and lateral projections. The left ankle is exami ivanna in AP lateral and oblique views. FINDINGS: Scattered subcutaneous desiccation is are seen throughout the extremity. Right knee arthrop lasty which appears intact. No evidence of fracture. Calcaneal plantar spurring is present. No osseou s erosive changes identified. No evidence of any acute osseous pathology, joint dislocation, or soft tissue swelling is noted. IMPRESSION: 1. No evidence of acute fracture. 2. No evidence of osteomyelitis.
[2022-02-06 21:23] LABS: Basophils # (A) 0.1 k/uL (0-0.2); Basophils % (A) 1 %; Eosinophils # (A) 0.2 k/uL (0-0.7); Eosinophils % (A) 3 %; HCT 37.7 % (34.0-46.0); HGB 11.5 gm/dL (11.4-16.0); Hypochromasia Slight; Lymphocytes # (A) 2.1 k/uL (1.0-4.8); Lymphocytes % (A) 27 %; MCH 27.1 pg (25.0-35.0); MCHC 30.6 g/dL (31.0-37.0); MCV 88.7 fL (80.0-100.0); Mean Platelet Volume 8.6; Monocytes # (A) 0.5 k/uL (0-1.0); Monocytes % (A) 7 %; Neutrophils # (A) 4.5 k/uL (1.3-7.7); Neutrophils % (A) 58 %; Platelet Count 252 k/uL (150-450); RBC 4.25 m/uL (3.80-5.40); RDW 15.7 % (11.5-15.5); WBC 7.7 k/uL (3.8-10.6)
[2022-02-06 21:32] LABS: Albumin 3.9 g/dL (3.5-5.0); Calcium 8.9 mg/dL (8.4-10.2); Potassium 4.2 mmol/L (3.5-5.1); Total Bilirubin 0.3 mg/dL (0.2-1.3); Total Protein 6.6 g/dL (6.3-8.2)
[2022-02-06] MEDS ORDERED: CLINDAMYCIN 150 MG CAP PO STA (22:00)
--- NOTE | 2022-02-06 22:04 | ED ---
Extremity Problem HPI - General Chief complaint: Extremity Problem,Nontraumatic Stated complaint: Extremity swelling Time Seen by Provider: 02/06/22 20:21 Source: patient Mode of arrival: ambulatory Limitations: no limitations - History of Present Illness Initial comments: Patient is a 66-year-old female presenting with chief complaint of left lower leg redness and swelling. Patient states that this has been ongoing for the last 3 days and worsening. The pain feels like a soreness. She admits to some tenderness of the lower extremity. She denies any red streaking up the leg or groin sensitivity. She denies any loss of range of motion. No fever or chills. She has not been on any recent antibiotics. Denies any chest pain, shortness of breath, palpitations, weakness, numbness, tingling, nausea, vomiting, abdominal pain, back pain. - Related Data Home Medications Medication Instructions Recorded Confirmed Cyclobenzaprine HCl 10 mg PO HS@2200 10/03/18 02/06/22 DULoxetine HCL [Cymbalta] 30 mg PO BID@0700,1800 10/03/18 02/06/22 Lansoprazole 30 mg PO BID@0700,2200 10/03/18 02/06/22 Levothyroxine Sodium 100 mcg PO DAILY@0710/03/18 02/06/22 Losartan [Cozaar] 50 mg PO DAILY@69910/03/18 02/06/22 Metoprolol Tartrate [Lopressor] 25 mg PO BID@0700,1500 10/03/18 02/06/22 Potassium Chloride [Potassium 10 meq PO DAILY@69910/03/18 02/06/22 Chloride ER] Spironolactone [Aldactone] 25 mg PO DAILY@69910/03/18 02/06/22 Albuterol Nebulized [Ventolin 2.5 mg INHALATION RT-Q6H PRN 10/10/21 02/06/22 Nebulized] Cholecalciferol (Vitamin D3) 125 mcg PO DAILY@69910/10/21 02/06/22 [Vitamin D3 (125 MCG = 5,000 IU)] Gabapentin 600 mg PO TID@0700,1800,2200 10/10/21 02/06/22 Grape Seed Extract 300mg 300 mg PO DAILY@0710/10/21 02/06/22 Montelukast Sodium [Singulair] 10 mg PO HS@2200 10/10/21 02/06/22 levETIRAcetam [Keppra] 500 mg PO DAILY@69910/10/21 02/06/22 Budesonide [Pulmicort] 0.5 mg INHALATION RT-BID 02/06/22 02/06/22 Cyanocobalamin [Vitamin B-12] 500 mcg PO DAILY@69902/06/22 02/06/22 Furosemide [Lasix] 40 mg PO DAILY@69902/06/22 02/06/22 Ipratropium-Albuterol Nebulize 3 ml INHALATION RT-QID PRN 02/06/22 02/06/22 [Duoneb 0.5 mg-3 mg/3 ml Soln] Magnesium 250 mg PO DAILY@69902/06/22 02/06/22 Lafferty-3 Fatty Acids/Fish Oil [Fish 1 cap PO DAILY@69902/06/22 02/06/22 Oil 1,000 mg Softgel] Spironolactone [Aldactone] 12.5 mg PO HS@219902/06/22 02/06/22 Zinc 50 mg PO DAILY@69902/06/22 02/06/22 amLODIPine [Norvasc] 2.5 mg PO DAILY@69902/06/22 02/06/22 traMADol HCL 50 mg PO HS@2200 PRN 02/06/22 02/06/22 Previous Rx's Medication Instructions Recorded Clindamycin [Cleocin] 450 mg PO TID 10 Days #30 cap 02/06/22 Allergies Allergy/AdvReac Type Severity Reaction Status Date / Time cephalexin [From Keflex] Allergy rash Verified 02/06/22 16:29 around mouth doxycycline Allergy Itching Verified 02/06/22 16:29 Review of Systems ROS Statement: Those systems with pertinent positive or pertinent negative responses have been documented in the HPI. ROS Other: All systems not noted in ROS Statement are negative. Past Medical History Past Medical History: COPD, GERD/Reflux, Thyroid Disorder Additional Past Medical History / Comment(s): hiatal hernia,hx hypoglycemia,rapid heart rate History of Any Multi-Drug Resistant Organisms: None Reported Past Surgical History: Appendectomy, Bariatric Surgery, Section, Cholecystectomy, Joint Replacement, Tonsillectomy Additional Past Surgical History / Comment(s): rt shoulder replacement,tali knee replaced x 2,gastric stapling 30 yrs ago-later reversed,rt carpel tunnel x 2, abdominal lysis of adhesions and failed rou-en-y 01/05/19 w/wesly Past Anesthesia/Blood Transfusion Reactions: No Reported Reaction Additional Past Anesthesia/Blood Transfusion Reaction / Comment(s): no hx blood transfusion Past Psychological History: No Psychological Hx Reported Smoking Status: Former smoker Past Alcohol Use History: None Reported Past Drug Use History: Marijuana - Past Family History Mother Family Medical History: No Reported History Father Family Medical History: Cancer, COPD General Exam Limitations: no limitations General appearance: alert, in no apparent distress Head exam: Present: atraumatic, normocephalic, normal inspection Eye exam: Present: normal appearance, EOMI. Absent: scleral icterus Neck exam: Present: normal inspection Respiratory exam: Present: normal lung sounds bilaterally. Absent: respiratory distress, wheezes, rales, rhonchi, stridor Cardiovascular Exam: Present: regular rate, normal rhythm, normal heart sounds. Absent: systolic murmur, diastolic murmur, rubs, gallop, clicks Extremities exam: Present: normal capillary refill Left Knee exam: Present: normal inspection, full ROM. Absent: tenderness, swelling Lower Leg exam: Present: full ROM, tenderness, swelling, erythema. Absent: normal inspection Ankle exam: Present: full ROM, tenderness, swelling Neurovascular tendon exam: Present: no vascular compromise (pedal and posterior tibial pulses palpated), sensory deficit (Patient has existing neuropathy). Absent: motor deficit Neurological exam: Present: alert, oriented X3, CN II-XII intact Psychiatric exam: Present: normal affect, normal mood Course Vital Signs 02/06/22 02/06/22 16:26 22:26 Temperature 98.1 F 98 F Pulse Rate 87 81 Respiratory 20 16 Rate Blood Pressure 127/55 122/78 O2 Sat by Pulse 96 98 Oximetry Medical Decision Making - Medical Decision Making Patient is a 66-year-old female presenting with chief complaint of left lower leg redness and swelling. This has been ongoing for the last 3 days. On examination there is tenderness to palpation, pedal and posterior tibial pulses palpated, patient has existing neuropathy, no sign of injury or break in the skin on the bottom of the foot, full range of motion, no evidence of red streaking up the leg or tender groin lymph nodes. Lab work shows no leukocytosis, x-rays are negative. Patient is afebrile and nontoxic appearing. Patient has been prescribed clindamycin 450 mg 3 times a day for 10 days. Patient struck her follow-up with her PCP in 2 days. Report back to ER if any worsening symptoms. I discussed return parameters alarm symptoms. Answered all questions. Patient conveyed verbal understanding and agreed to the plan. I discussed this case with my attending Dr. Martin. - Lab Data Result diagrams: 02/06/22 21:03 02/06/22 21:03 Lab Results 02/06/22 02/06/22 02/06/22 Range/Units 21:03 21:03 21:10 WBC 7.7 (3.8-10.6) k/uL RBC 4.25 (3.80-5.40) m/uL Hgb 11.5 (11.4-16.0) gm/dL Hct 37.7 (34.0-46.0) % MCV 88.7 (80.0-100.0) fL MCH 27.1 (25.0-35.0) pg MCHC 30.6 L (31.0-37.0) g/dL RDW 15.7 H (11.5-15.5) % Plt Count 252 (150-450) k/uL MPV 8.6 Neutrophils % 58 % Lymphocytes % 27 % Monocytes % 7 % Eosinophils % 3 % Basophils % 1 % Neutrophils # 4.5 (1.3-7.7) k/uL Lymphocytes # 2.1 (1.0-4.8) k/uL Monocytes # 0.5 (0-1.0) k/uL Eosinophils # 0.2 (0-0.7) k/uL Basophils # 0.1 (0-0.2) k/uL Hypochromasia Slight Sodium 137 (137-145) mmol/L Potassium 4.2 (3.5-5.1) mmol/L Chloride 100 (98-107) mmol/L Carbon Dioxide 31 H (22-30) mmol/L Anion Gap 6 mmol/L BUN 19 H (7-17) mg/dL Creatinine 0.91 (0.52-1.04) mg/dL Est GFR (CKD-EPI)AfAm 77 (>60 ml/min/1.73 sqM) Est GFR (CKD-EPI)NonAf 67 (>60 ml/min/1.73 sqM) Glucose 140 H (74-99) mg/dL Plasma Lactic Acid Syd 1.1 (0.7-2.0) mmol/L Calcium 8.9 (8.4-10.2) mg/dL Total Bilirubin 0.3 (0.2-1.3) mg/dL AST 25 (14-36) U/L ALT 24 (4-34) U/L Alkaline Phosphatase 88 (38-126) U/L Total Protein 6.6 (6.3-8.2) g/dL Albumin 3.9 (3.5-5.0) g/dL Disposition Clinical Impression: Cellulitis Disposition: HOME SELF-CARE Condition: Fair Instructions (If sedation given, give patient instructions): Cellulitis (ED) Additional Instructions: Follow-up with PCP in 2 days. Report back to ER with any worsening symptoms, including but not limited to fever, chills, red streaks running up the leg, groin tenderness, increased redness/pain/swelling. Take medication as prescribed. Utilize Motrin and Tylenol for pain control as needed. Prescriptions: Clindamycin [Cleocin] 450 mg PO TID 10 Days #30 cap Is patient prescribed a controlled substance at d/c from ED?: No Referrals: Jeff Song MD [Primary Care Provider] - 1-2 days Time of Disposition: 22:03
[2022-02-06 22:27] VITALS: BP 122/78; PULSE 81; RESP 16; TEMP 98
== END 2022-02-06 22:26 | disposition home or self-care (01) ==
LOC: EC 16:06
DX: L03.90 Cellulitis, unspecified (principal); J44.9 Chronic obstructive pulmonary disease, unspecified; Z79.51 Long term (current) use of inhaled steroids; Z87.891 Personal history of nicotine dependence; F12.90 Cannabis use, unspecified, uncomplicated; Z88.1 Allergy status to other antibiotic agents
CPT/HCPCS: 36415; 80053; 83605; 85025; 87040; 99283

== ENCOUNTER → 2023-11-07 | Outpatient (CLI) | payer MEDICARE | END | disposition home or self-care (01) | LOC: LABPAT 14:23 | PROVIDERS: ATTEND Orthopaedic Surgery | DX: Z01.812 Encounter for preprocedural laboratory examination (principal); Z22.322 Carrier or suspected carrier of Methicillin resistant Staphylococcus aureus; M43.16 Spondylolisthesis, lumbar region; M47.26 Other spondylosis with radiculopathy, lumbar region | CPT/HCPCS: 86850; 86900; 86901; 87070 ==

== ENCOUNTER → 2024-01-08 | Outpatient (CLI) | payer MEDICARE ==
--- NOTE | 2024-01-08 12:31 | MR ---
EXAMINATION TYPE: MR lumbar spine wo/w con DATE OF EXAM: 01/08/2024 12:22 PM CLINICAL INDICATION:Female, 68 years old with history of M54.5 LOW BACK PAIN; PHH, Lower back pain, h x surgery. COMPARISON: 06/16/2023 TECHNIQUE: Multi planar, multi sequence imaging was performed utilizing: T1-weighted, T2-weighted, a nd turbo inversion recovery imaging of the lumbar spine. IV Contrast: 12 cc Gadavist. (None if empty) FINDINGS: Alignment: The lumbar vertebral bodies have preserved heights. Grade 1 anterolisthesis of L4 on L5 an d L5 and S1. Cord: The conus medullaris and the distal spinal cord appear unremarkable with regards to their signa l intensity and morphology. No abnormal postcontrast enhancement. Bones/Discs: Post surgical changes with fixation of bowel for L5 and S1. Evaluation is limited due to the hardware. Moderate degeneration changes throughout the spine with osteophyte formation and facet joint arthropathy. Multilevel disc desiccation is present. No abnormal postcontrast enhancement give n limitations of exam. T12-L1: No evidence of significant spinal canal stenosis or neural foraminal stenosis. L1-L2: No evidence of significant spinal canal stenosis. Facet joint arthropathy mild bilateral neura l foraminal stenosis. L2-L3: No evidence of significant spinal canal stenosis. Facet joint arthropathy mild bilateral neura l foraminal stenosis. L3-L4: Evaluation limited by susceptibility artifact. Degeneration changes with osteophyte formation with mild spinal canal and moderate bilateral neural foraminal stenosis. L4-L5: Evaluation limited by susceptibility artifact. Disc bulge and facet joint arthropathy result i n moderate spinal canal and moderate bilateral neural foraminal stenosis. L5-S1: Evaluation limited by susceptibility artifact. The disc is rounded posterior morphology withou t significant spinal canal stenosis. Facet joint arthropathy with moderate bilateral neural foraminal stenosis. No significant spinal canal or neural foraminal stenosis in the remainder of the visualized levels. Other findings: Right lower back postop high T2 signal fluid collection compatible with seroma measu ring at least 91 x 43 mm. IMPRESSION: 1. Postsurgical changes limiting evaluation, no obvious abnormal postcontrast enhancement. No defini tive evidence of disc herniation or significant spinal canal stenosis. 2. Moderate disc degeneration with associated osteoarthritic changes with moderate multilevel neural foraminal stenosis in the lower lumbar spine 3. Lower back subcutaneous changes seroma.
== END | disposition home or self-care (01) ==
LOC: RADMRIMAIN 10:44
PROVIDERS: ATTEND Orthopaedic Surgery
DX: M51.36 Other intervertebral disc degeneration, lumbar region (principal); M99.73 Connective tissue and disc stenosis of intervertebral foramina of lumbar region
CPT/HCPCS: 72158; A9585